=== PATIENT | female | born 2005 | race Caucasian/White ===

== ENCOUNTER 2024-09-12 16:36 | Emergency (ER) | payer OTHER, SELFPAY ==
[2024-09-12 16:44] VITALS: BP 121/71; PULSE 93; RESP 18; TEMP 36.9; O2SAT 100
--- NOTE | 2024-09-12 16:52 | ED_ITS ---
HPI - Ear Problem General Chief complaint: Ear Stated complaint: Right Ear Pain Time Seen by Provider: 09/12/24 16:52 Source: patient Mode of arrival: ambulatory Limitations: no limitations History of Present Illness HPI Narrative: 18 y/o female presented for c/o right ear pain, sore throat, and headache. Onset 3 days. Denies any other symptoms. Has not taken anything for symptoms. Sister with strep. MD Complaint: ear pain Related Data Home Medications ?Medication ?Instructions ?Recorded ?Confirmed ?Last Taken ?Type No Home Medications 09/12/24 09/12/24 Unknown History Allergies Allergy/AdvReac Type Severity Reaction Status Date / Time MYCINS Allergy Severe ANAPHYLAXIS Uncoded 09/12/24 16:38 Review of Systems Review of Systems: CONSTITUTIONAL: Denies malaise, chills, or fever. EYES: Denies visual changes, redness, or discharge. ENT: Denies rhinorrhea, congestion, sinus pain, Reports ear pain, sore throat CARDIOVASCULAR: Denies chest pain, palpitations, or edema. RESPIRATORY: Denies cough or dyspnea. GASTROINTESTINAL: Denies abdominal pain, nausea, vomiting, diarrhea SKIN: Denies rash or itching. MUSCULOSKELETAL: Denies myalgia. All systems reviewed & are unremarkable except as noted in HPI and below PMFSH Comments At time of signature, agree with nursing past medical, surgical, social and family history. There is no relevant family history pertinent to the presenting complaint Exam Narrative: GENERAL: Well-appearing EYES: PERRLA, conjunctivae clear ENT: Nares clear. Mucous membranes moist. TMs pearly edouard with dull light reflex bilaterally; no tragal tenderness. Oropharynx not erythematous without lesions. Tonsils absent; no drooling, no hoarseness, no trismus, uvula midline. NECK: Supple. No lymphadenopathy CHEST: Clear to auscultation, breath sounds equal. HEART: Regular rate and rhythm. No murmur heard. SKIN: Warm, dry, no rash. NEURO: Alert and oriented x3. PSYCH: Normal mood and affect Course Course Emergency Course: Patient is aware of diagnosis, understands and agrees to treatment plan. Anticipatory guidance given. Patient agrees to follow-up as directed and is aware of reasons to seek care at the emergency department. Portions of this record may have been created with voice recognition software Level of Care: Express Care Visit Vital Signs Vital signs: Vital Signs Temperature 98.5 F 09/12/24 16:44 Pulse Rate 93 09/12/24 16:44 Respiratory Rate 18 09/12/24 16:44 Blood Pressure 121/71 09/12/24 16:44 Pulse Oximetry 100 09/12/24 16:44 Oxygen Delivery Room Air 09/12/24 16:44 Temperature 98.5 F 09/12/24 16:44 Pulse Rate 93 09/12/24 16:44 Respiratory Rate 18 09/12/24 16:44 Blood Pressure 121/71 09/12/24 16:44 Pulse Oximetry 100 09/12/24 16:44 Oxygen Delivery Room Air 09/12/24 16:44 Reviewed Medical Decision Making MDM Narrative Medical decision making narrative: strep negative, Advised supportive measures and signs/symptoms to go to the ER. Patient is appropriate for outpatient treatment and follow-up. Differential Diagnosis Differential Diagnosis: Coronavirus, strep pharyngitis, allergic rhinitis, upper respiratory tract infection, sinusitis, rhinosinusitis, nasopharyngitis, viral pharyngitis, otitis media, otitis externa, eustachian tube dysfunction, foreign body, cerumen impaction. Vital Signs Vital Signs: Vital Signs Temperature 98.5 F 09/12/24 16:44 Pulse Rate 93 09/12/24 16:44 Respiratory Rate 18 09/12/24 16:44 Blood Pressure 121/71 09/12/24 16:44 Pulse Oximetry 100 09/12/24 16:44 Oxygen Delivery Room Air 09/12/24 16:44 Temperature 98.5 F 09/12/24 16:44 Pulse Rate 93 09/12/24 16:44 Respiratory Rate 18 09/12/24 16:44 Blood Pressure 121/71 09/12/24 16:44 Pulse Oximetry 100 09/12/24 16:44 Oxygen Delivery Room Air 09/12/24 16:44 Discharge Plan Discharge Clinical Impression: Otalgia of right ear Patient Disposition: Home, Self-Care Condition: Stable Instructions: Antibiotic Form, Earache (ED) Additional Instructions: Rapid strep swab was negative today You will be notified in a few days if the culture comes back positive for strep, and appropriate antibiotics will be called in at that time. if symptoms are due to a viral illness, it is not treated with antibiotics. Viral symptoms can be present for up to 10-14 days. Recommend Flonase spray and Zyrtec for sinus congestion Tylenol every 8 hours as needed for pain/fever Soft foods, cool liquids, warm tea. Gargle with warm saltwater twice a day. Chloraseptic spray and throat lozenges. Rest and stay hydrated. --Follow up with your PCP --Go to the ER immediately if you cannot swallow your saliva, trouble breathing/wheezing, throat swelling, pain is persistent and severe Patient Language: Citizen Of [place] Prescriptions: No Action No Home Medications Follow-up/Referrals: PHYSICIAN NOT ON STAFF,NONSTAFF [Primary Care Provider] - Time of Disposition: 17:09
[2024-09-12 17:11] LABS: EDSTREPNEGPOS1 Negative (Negative)
== END 2024-09-12 17:12 | disposition home or self-care (01) ==
PROVIDERS: Emergency Provider Nurse Practitioner Family
DX: H92.01 Otalgia, right ear (principal)
CPT/HCPCS: 87081; 87880; 99213; G0463

== ENCOUNTER 2025-02-19 01:17 | Emergency (ER) | payer OTHER, SELFPAY ==
--- OUTSIDE RECORDS SUMMARY | 2025-02-19 01:19 | XMS_ITS | Referral Summary ---
Author Organization [facility] Address [address] [place] [address] Care Team Providers Care Legger Press Operator Name Role Phone Inez Bui NP Primary Care Provider [phone] Encounters Date Type Department Care Team Description 01/07/2025 Orders Only [facility] Primary Care at [address] [phone] Inez Bui NP Mood disorder (Primary Dx) 01/07/2025 11:00 AM CDT Office Visit [facility] Primary Care at [address] [phone] Inez Bui NP Mood disorder (Primary Dx); Chronic pain of both knees 11/26/2024 Results Follow-Up [facility] Primary Care at [address] [phone] Inze Bui NP Trichomonas vaginalis PCR Urine, HIV 1/2 Antibody plus p24 Antigen Blood, Hepatitis panel, acute Blood, Additional followed-up results: 7 11/23/2024 11:05 AM SENIOR PROJECT ENGINEER Lab [address] Annual physical exam; Screening for thyroid disorder; Screen for sexually transmitted diseases; Encounter for hepatitis C screening test for low risk patient 11/23/2024 Orders Only [facility] Primary Care at [address] [phone] Inez Bui NP Mood disorder; Chronic pain of both knees 11/23/2024 10:30 AM SENIOR PROJECT ENGINEER Office Visit [facility] Primary Care at [address] [place] [address] Ienz Bui NP Annual physical exam (Primary Dx); Mood disorder; Chronic pain of both knees; Screening for thyroid disorder; Screen for sexually transmitted diseases; Encounter for hepatitis C screening test for low risk patient; Influenza vaccination declined from Last 3 Months Allergies No known active allergies Medications naproxen (NAPROSYN) 250 mg tablet TAKE 1 TABLET(250 MG) BY MOUTH DAILY NEEDED FOR PAIN OR MENSTRUAL CRAMPING 20 tablet 2 4 Active busPIRone (BUSPAR) 5 mg tabletIndicatio ns:Generalized Anxiety Disorder Take 1 tablet (5 mg total) by mouth 2 (two) times a day as needed (anxiety) 90 tablet 5 Active escitalopram (LEXAPRO) 10 mg tabletIndicatio ns:Mood disorder Take 1.5 tablets (15 mg total) by mouth daily 90 tablet 5 Active Active Problems Problem Noted Date Diagnosed Date Mood disorder 11/23/2024 Assessment & Plan (01/07/2025 11:21 AM CDT): -chronic, improving, but not at goal -Increase to escitalopram 10 mg 1.5 tablets daily -Continue on buspirone 5 mg twice daily as needed for anxiety- advised patient to avoid taking the buspirone with the Lexapro to see if this helps to improve her excessive sleep -New referral sent to Psychiatry -Follow up in 6 weeks or sooner as needed Patient reiterated no suicidal thoughts at this time; take medication as directed; contact 911 and go to the ER if becomes suicidal; discussed side effects of medication with patient; encouraged healthy diet and exericise; encouraged patient to see a counselor Assessment & Plan (11/23/2024 11:24 AM SENIOR PROJECT ENGINEER): -chronic, not at/near goal -Discussed/ordered labs -Start on escitalopram 10 mg daily and buspirone 5 mg twice daily as needed for anxiety -Referral sent to Psychiatry -Follow up in 6 weeks or sooner as needed Patient reiterated no suicidal thoughts at this time; take medication as directed; contact 911 and go to the ER if becomes suicidal; discussed side effects of medication with patient; encouraged healthy diet and exericise; encouraged patient to see a counselor Chronic pain of both knees 11/23/2024 Assessment & Plan (01/07/2025 11:22 AM CDT): -chronic, not at/near goal -Patient reports completing imaging and physical therapy, but she does not remember where she had done this. Advised patient to try to find where the imaging with completed and reach out to see if they can send the imaging results to us -Information provided to patient for ortho referral Assessment & Plan (11/23/2024 11:25 AM SENIOR PROJECT ENGINEER): -chronic, not at/near goal -Patient reports completing imaging and physical therapy, but she does not remember where she had done this. Advised patient to try to find where the imaging with completed and reach out to see if they can send the imaging results to us -Referral sent to ortho for further evaluation and management Vegetarian diet 05/06/2023 Assessment & Plan (05/06/2023 8:55 AM CDT): -Patient follows a vegetarian diet. -advised patient to ensure she is eating enough protein daily -lab work ordered today Immunizations Immunization Administration Dates Next Due DTaP 04/25/2010,03/14/2006 DTaP / Hep B / IPV 04/27/2005,02/18/2005, 005 HPV9 05/06/2023,12/05/2020 Hep A, Ped Unspecified 09/20/2006,03/14/2006 Hep B, Adolescent or Pediatric 2004 HiB 02/18/2005,2004 IPV 04/25/2010,02/11/2006 Influenza, Quadrivalent, Spl it, Preservative Free, Intramuscular 10/12/2016 Influenza, Split 07/07/2009,07/31/2008 Influenza, Unspecified 11/23/2024(Deferr ed: Patient Refused),07/03/2024(Deferred: Patient Refused),07/03/2023(Deferred: Patient Refused) MMR 04/25/2010,10/25/2005 Meningococcal B, OMV (Bexsero) 05/06/2023 Meningococcal Conjugate (Menveo) 12/05/2020 Meningococcal MCV4P (Menactra) 10/12/2016 Pneumococcal Conjugate 7-Valent 04/27/2005,02/18,2004 Tdap 05/12/2016 Varicella 05/12/2016,10/25/2005 Social History Tobacco Use Types Packs/Day Years Used Date Smoking Tobacco: Never Smokeless Tobacco: Never AUDIT-C Answer Date Recorded Q1: How often do you have a drink containing alcohol? Never 01/07/2025 Q2: How many drinks containi ng alcohol do you have on a typical day when you are drinking? Patient does not drink Q3: How often do you have si x or more drinks on one occasion? Never 01/07/2025 PHQ-2 Answer Date Recorded PHQ-2 Total Score (If total score is 3 or more points, staff should administer the PHQ-9) 1 01/07/2025 PHQ-9 Answer Date Recorded PHQ-9 Total Score 12 11/23/2024 Comments Unknown Sex and Gender Information Value Date Recorded Sex Assigned at Not on file Legal Sex Female 8:40 AM CDT Gender Identity Female 10/01/2024 8:36 PM SENIOR PROJECT ENGINEER Sexual Orientation Don't know 10/01/2024 8: 36 PM SENIOR PROJECT ENGINEER Last Filed Vital Signs Vital Sign Reading Time Taken Comments Blood Pressure 101/65 01/07/2025 10:51 AM CDT Pulse 80 01/07/2025 10:51 AM CDT Temperature 36.2 C (97.1 F) 01/07/2025 10:51 AM CDT Respiratory Rate 14 01/07/2025 10:51 AM CDT Oxygen Saturation 99% 01/07/2025 10:51 AM CDT Inhaled Oxygen Concentration - - Weight 49.9 kg (110 lb) 01/07/2025 10:51 AM CDT Height 151 cm (4' 11.45 ) 01/07/2025 10:51 AM CD T Body Mass Index 21.88 01/07/2025 10:51 AM CDT Plan of Treatment Not on file Procedures Procedure Name Priority Date/Time Associated Diagnosis Comments EGFR Routine 11/23/2024 11:02 AM SENIOR PROJECT ENGINEER Annual physical exam Screening for thyroid disorder Screen for sexually transmitted diseases Encounter for hepatitis C screening test for low risk patient DIFFERENTIAL AUTO Routine 11/23/2024 11: 02 AM SENIOR PROJECT ENGINEER Annual physical exam Screening for thyroid disorder Screen for sexually transmitted diseases Encounter for hepatitis C screening test for low risk patient CBC WITH AUTO DIFFERENTIAL Routine 11/23/2024 11:02 AM SENIOR PROJECT ENGINEER Annual physical exam Screening for thyroid disorder Screen for sexually transmitted diseases Encounter for hepatitis C screening test for low risk patient COMPREHENSIVE METABOLIC PANEL Routine 11/23/2024 11:02 AM SENIOR PROJECT ENGINEER Annual physical exam Screening for thyroid disorder Screen for sexually transmitted diseases Encounter for hepatitis C screening test for low risk patient THYROID FUNCTION CASCADE Routine 11/23/2024 11:02 AM SENIOR PROJECT ENGINEER Annual physical exam Screening for thyroid disorder Screen for sexually transmitted diseases Encounter for hepatitis C screening test for low risk patient N. GONORRHOEAE/C. TRACHOMATIS AMPLIFICATION Routine 11/23/2024 11:02 AM SENIOR PROJECT ENGINEER Annual physical exam Screening for thyroid disorder Screen for sexually transmitted diseases Encounter for hepatitis C screening test for low risk patient HEPATITIS PANEL, ACUTE Routine 11:02 AM SENIOR PROJECT ENGINEER Annual physical exam Screening for thyroid disorder Screen for sexually transmitted diseases Encounter for hepatitis C screening test for low risk patient HIV 1/2 ANTIBODY PLUS P24 ANTIGEN Routine 11/23/2024 11:02 AM SENIOR PROJECT ENGINEER Annual physical exam Screening for thyroid disorder Screen for sexually transmitted diseases Encounter for hepatitis C screening test for low risk patient RPR Routine 11/23/2024 11:02 AM SENIOR PROJECT ENGINEER Annual physical exam Screening for thyroid disorder Screen for sexually transmitted diseases Encounter for hepatitis C screening test for low risk patient TRICHOMONAS VAGINALIS PCR Routine 11/23/2024 11:02 AM SENIOR PROJECT ENGINEER Annual physical exam Screening for thyroid disorder Screen for sexually transmitted diseases Encounter for hepatitis C screening test for low risk patient from Last 3 Months Results * N. gonorrhoeae/C. trachomatis Amplification Urine (11/23/2024 11:02 AM SENIOR PROJECT ENGINEER) C. trachomatis Not Detected [facility] Comment:Testing performed by : [facility], [address] [place] [address]., [id number] N. gonorrhoeae Not Detected [facility]ICA DEN[facility] ([place]) Comment: Interpretive Data This assay detects Chlamydia trachomatis and Neisseria gonorrhoeae by nucleic acid amplification testing (NAAT). This assay has been cleared by the [place] Food and Drug administration. The performance characteristics of this test have been verified by the [facility] Molecular Infectious Disease laboratory. The performance characteristics of this test have not been evaluated in individuals less than 14 years of age. Current Interpretive Data was last revised on 2023. Testing performed by: [facility], [address] [place] [address]., [id number] Urine (None) 11/23/2024 11:0 2 AM SENIOR PROJECT ENGINEER 11/23/2024 5:25 PM SENIOR PROJECT ENGINEER Inez Rodriguezman ANNABELLA LAB MICROBIOLOGY - GENERAL O RDERABLES Final Result KIMO ISH ([place]) 1 [facility] Department [place] [address] [facility] * Trichomonas vaginalis PCR Urine (11/23/2024 11:02 AM SENIOR PROJECT ENGINEER) Pathologist [facility] Trichomonas DNA Not Detected [facility] Comment: Interpretive Data This assay detects Trichomonas vaginalis by nucleic acid amplification testing (NAAT). This assay has been cleared by the [place] Food and Drug administration. The performance characteristics of this test have been verified by the [facility] Molecular Infectious Disease laboratory. The performance of this test has not been evaluated in individuals less than 18 years of age. Current Interpretive Data was last revised on 2023. Testing performed by: [facility], [address] [place] [address]., [id number] Urine 11/23/2024 11:0 2 AM SENIOR PROJECT ENGINEER 11/23/2024 5:25 PM SENIOR PROJECT ENGINEER Inez Bui NP LAB MICROBIOLOGY - GENERAL O RDERABLES Final Result Performing Organization Address City/[facility]/ZIP Co de Phone Number KIMO DENG (GYPSY) 1 [facility] Department [place] [address] BJ * eGFR (11/23/2024 11:02 AM SENIOR PROJECT ENGINEER) eGFR >90 >=60 mL/min/1. 73 m2 Comment: Interpretive Data Reference Interval Normal >/= 90 mL/min/1.73m2 Mildly decreased* 60 - 89 mL/min/1.73m2 Mildly to moderately decreased 45 - 59 mL/min/1.73m2 Moderately to severely decreased 30 - 44 mL/min/1.73m2 Severely decreased 15 - 29 mL/min/1.73m2 Kidney Failure < 15 mL/min/1.73m2 *Relative to young adult level Estimated glomerular filtration rate is determined by the 2020 CKD-EPI equation recommended by the National Kidney Foundation (A Unifying Approach to GFR Estimation: Recommendations of the NKF-ASK Task Force on Reassessing the Inclusion of Race in Diagnosing Kidney Disease, JASN 2020). The CKD-EPI equation should not be used for patients with unstable renal function and has not been validated in children and those over 70. Current interpretive data was last reviewed 2021. Blood 11/23/2024 11:0 2 AM SENIOR PROJECT ENGINEER 11/23/2024 1:38 PM SENIOR PROJECT ENGINEER Inez Bui NP LAB BLOOD ORDERABLES Final R esult Performing Organization Address City/[facility]/ZIP Co de Phone Number KIMO DENG (GYPSY) 1 [facility] Department [place] [address] * Differential, auto (11/23/2024 11:02 AM SENIOR PROJECT ENGINEER) Neutrophil abs 2.2 1.5 - 6.5 K/cumm Imm gran abs 0.0 0.0 - 0.1 K/cumm [facility] ([place]) Lymphocyte abs 1.6 0.8 - 3.3 K/cumm [facility] ([place]) Monocyte abs 0.3 0.2 - 0.8 K/cumm [facility] ([place]) Eosinophil abs 0.1 0.0 - 0.5 K/cumm [facility] ([place]) Basophil abs 0.1 0.0 - 0.1 K/cumm [facility] ([place]) Neutrophil pct 50.1 % [facility] ([place]) Comment: Interpretive Data Percent cell count reference ranges are not reported, since discordance with absolute values may lead to misinterpretation of CBC data. Current Interpretive Data was last revised on 2018. Imm gran pct 0.2 % [facility] ([place]) Comment: Interpretive Data Percent cell count reference ranges are not reported, since discordance with absolute values may lead to misinterpretation of CBC data. Current Interpretive Data was last revised on 2018. Lymphocyte pct 37.8 % [facility] ([place]) Comment: Interpretive Data Percent cell count reference ranges are not reported, since discordance with absolute values may lead to misinterpretation of CBC data. Current Interpretive Data was last revised on 2018. Monocyte pct 7.9 % [facility] ([place]) Comment: Interpretive Data Percent cell count reference ranges are not reported, since discordance with absolute values may lead to misinterpretation of CBC data. Current Interpretive Data was last revised on 2018. Eosinophil pct 2.8 % [facility] ([place]) Comment: Interpretive Data Percent cell count reference ranges are not reported, since discordance with absolute values may lead to misinterpretation of CBC data. Current Interpretive Data was last revised on 2018. Basophil pct 1.2 % [facility] ([place]) Comment: Interpretive Data Percent cell count reference ranges are not reported, since discordance with absolute values may lead to misinterpretation of CBC data. Current Interpretive Data was last revised on 2018. Blood 11/23/2024 11:0 2 AM SENIOR PROJECT ENGINEER 11/23/2024 1:38 PM SENIOR PROJECT ENGINEER [facility] LAB BLOOD ORDERABLES Final R esult Performing Organization Address [facility] Co de Phone Number KIMO DENG (DARCIE) 1 [facility] [place] [address] * Thyroid Function [place] (11/23/2024 11:02 AM SENIOR PROJECT ENGINEER) [facility] TSH 1.47 0.30 - 4.20 mcIUnit/mL Blood 11/23/2024 11:0 2 AM SENIOR PROJECT ENGINEER 11/23/2024 1:38 PM SENIOR PROJECT ENGINEER [facility] LAB BLOOD ORDERABLES Final R esult Performing Organization Address [facility] de Phone Number KIMO DENG (GYPSY) 1 [place] [address] * HIV 1/2 Antibody plus p24 Antigen Blood (11/23/2024 11:02 AM SENIOR PROJECT ENGINEER) [facility] HIV 1/2 ab + p24 ag Nonreactive Nonreactive Comment: Nonreactive for HIV-1 antigen and HIV-1/HIV-2 antibodies. No laboratory evidence of HIV infection. If acute HIV infection is suspected, consider testing for HIV-1 RNA. Testing performed by: [facility], [address] [place] [address]., [id number] Blood 11/23/2024 11:0 2 AM SENIOR PROJECT ENGINEER 11/23/2024 4:37 PM SENIOR PROJECT ENGINEER [facility] LAB MICROBIOLOGY - GENERAL O RDERABLES Final Result Performing Organization Address [facility] Co de Phone Number KIMO DENG (DARCIE) 1 [facility] [place] [address] * CBC with auto differential (11/23/2024 11:02 AM SENIOR PROJECT ENGINEER) [facility] WBC 4.3 3.8 - 9.9 K/cumm Hgb 15.0 11.9 - 15.5 g/dL [facility] ([place]) Hct 44.3 35.6 - 45.5 % [facility] ([place]) Plt 294 150 - 400 K/cumm [facility] ([place]) MPV 9.8 9.1 - 12.3 fL [facility] ([place]) RBC 4.84 3.90 - 5.20 M/cumm [facility] ([place]) MCV 91.5 81.3 - 96.4 fL [facility] ([place]) MCH 31.0 27.1 - 33.3 pg [facility] ([place]) MCHC 33.9 32.3 - 35.7 g/dL [facility] ([place]) RDW CV 11.6 11.1 - 14.9 % [facility] ([place]) RDW SD 38.9 35.7 - 48.1 fL [facility] ([place]) NRBC abs 0.00 0.00 - 0.01 K/cumm [facility] ([place]) Blood 11/23/2024 11:0 2 AM SENIOR PROJECT ENGINEER 11/23/2024 1:38 PM SENIOR PROJECT ENGINEER [facility] LAB BLOOD ORDERABLES Final R esult KIMO DENG ([place]AR[place]E) 1 [facility] Department [place] [address] * Hepatitis panel, acute Blood (11/23/2024 11:02 AM SENIOR PROJECT ENGINEER) Hep A IgM Nonreactive Nonreactive Comment: Interpretive Data: If Hep A IgM Ab is reported as Equivocal, a new sample should be drawn in two weeks for testing. Current interpretive data was last revised on 19. Testing performed by: [facility], [address] [place] [address]., [id number] Hep B core IgM Nonreactive Nonreactive C [facility] ([place]) Comment: Interpretive Data If HepB Core IgM Ab is reported as Equivocal, a new sample should be drawn in two weeks for testing. Current interpretive data was last revised on 19. Testing performed by: [address] [id number] Hep C Ab Nonreactive Nonreactive [facility] ([place]) Comment: Interpretive Data Nonreactive: Antibodies to HCV not detected. Does NOT exclude the possibility of recent exposure to HCV. Equivocal: Equivocal for HCV antibodies. Supplemental molecular testing will be automatically performed to determine infection status in accordance with current CDC screening recommendations. Reactive: Positive for HCV antibodies. This may represent current or past HCV infection. Supplemental molecular testing will be automatically performed to determine current infection status in accordance with current CDC screening recommendations. Interpretive data was last revised on 2019. Testing performed by: [facility], [address] [place] [address]., [id number] HepBsAg Nonreactive Nonreactive [facility] ([place]) Comment:Testing performed by : [facility], [address] [place] [address]., [id number] Blood 11/23/2024 11:0 2 AM SENIOR PROJECT ENGINEER 11/23/2024 4:37 PM SENIOR PROJECT ENGINEER Inez Bui LAB MICROBIOLOGY - GENERAL O RDERABLES Final Result Performing Organization Address City/[facility]/ZIP Co de Phone Number [facility] ([place]) 1 [facility] [place] [address] * RPR Blood (11/23/2024 11:02 AM SENIOR PROJECT ENGINEER) RPR Nonreactive Nonreactive Comment:Testing performed by : [facility], [address] [place] [address]., [id number] Blood 11/23/2024 11:0 2 AM SENIOR PROJECT ENGINEER 11/23/2024 4:37 PM SENIOR PROJECT ENGINEER [facility] LAB MICROBIOLOGY - GENERAL O RDERABLES Final Result [facility] ([place]) 1 [facility] [place] [address] * Comprehensive metabolic panel (11/23/2024 11:02 AM SENIOR PROJECT ENGINEER) Sodium 140 135 - 145 mmol/L Potassium, pl 4.1 3.3 - 4.9 mmol/L [facility] ([place]) Chloride 101 97 - 110 mmol/L [facility] ([place]) CO2 25 22 - 32 mmol/L [facility] ([place]) Anion gap 14 2 - 15 mmol/L [facility] ([place]) BUN 9 6 - 25 mg/dL [facility] ([place]) Creatinine 0.67 0.60 - 1.10 mg/dL [facility] ([place]) Glucose 90 70 - 199 mg/dL [facility] ([place]) Comment: Interpretive Data Fasting glucose >/= 126 mg/dl is diagnostic for diabetes. Fasting is defined as no caloric intake for at least 8 hours. Fasting glucose between 100 mg/dl to 125 mg/dl is diagnostic of prediabetes. In a patient with classic symptoms of hyperglycemia or hyperglycemic crisis, a random glucose >/= 200 mg/dl is diagnostic for diabetes. In the absence of unequivocal hyperglycemia, results should be confirmed by repeat testing. The classification and Diagnosis of Diabetes Diabetes Care 202; 46: S19-S40. Current interpretive data was last revised 2022. Calcium 9.6 8.5 - 10.3 mg/dL [facility] ([place]) Bilirubin, total 0.7 0.1 - 1.2 mg/dL [facility] ([place]) Protein, pl 8.0 6.5 - 8.5 g/dL [facility] ([place]) Albumin 4.9 3.5 - 5.0 g/dL [facility] ([place]) Alk phos 65 40 - 130 Units/L [facility] ([place]) ALT 12 7 - 45 Units/L [facility] ([place]) AST 22 10 - 45 Units/L [facility] ([place]) Blood 11/23/2024 11:0 2 AM SENIOR PROJECT ENGINEER 11/23/2024 1:38 PM SENIOR PROJECT ENGINEER Inez Rodriguezman ANNABELLA LAB BLOOD ORDERABLES Final R esult [facility] ([place]) 1 [facility] [place] [address] from Last 3 Months Insurance [employer] [facility] PPO [facility] PPO [facility] PPO Care Teams Legger Press Operator Relationship Specialty Start Date End Date Inez Bui NP 2 [facility] [address] LIN [address] [place] [id number] PCP - General Family Medicine 05/06/23
--- OUTSIDE RECORDS SUMMARY | 2025-02-19 01:19 | XMS_ITS | Clinical Summary ---
Author Organization [facility] Address [address] [place] [address] Care Team Providers Care Milk Bottler Name Role Phone Inez Bui NP Primary Care Provider [phone] Allergies No known active allergies Medications naproxen [...] counselor Assessment & Plan (11/23/2024 11:24 AM ROUTER OPERATOR RADIAL): -chronic, not at/near goal -Discussed/ordered labs -Start [...] referral Assessment & Plan (11/23/2024 11:25 AM ROUTER OPERATOR RADIAL): -chronic, not at/near goal -Patient reports completing [...] enough protein daily -lab work ordered today Encounters Date Type Department Care Team Description 01/07/2025 11:00 AM CDT Office Visit [facility] Primary [facility] at [address] [place] [address] Inez Bui NP Mood disorder (Primary Dx); Chronic pain of both knees 01/07/2025 Orders Only [facility] Primary Care at [address] [phone] Inez Bui NP Mood disorder (Primary Dx) 11/26/2024 Results Follow-Up [facility] at [address] [phone] Inez Bui NP Trichomonas vaginalis PCR Urine, HIV 1/2 Antibody plus p24 Antigen Blood, Hepatitis panel, acute Blood, Additional followed-up results: 7 11/23/2024 11:05 AM ROUTER OPERATOR RADIAL Lab [address] Annual physical exam; Screening for thyroid disorder; Screen for sexually transmitted diseases; Encounter for hepatitis C screening test for low risk patient 11/23/2024 10:30 AM ROUTER OPERATOR RADIAL Office Visit [facility] at [address] [phone] Inez Bui NP Annual physical exam (Primary Dx); Mood disorder; Chronic pain of both knees; Screening for thyroid disorder; Screen for sexually transmitted diseases; Encounter for hepatitis C screening test for low risk patient; Influenza vaccination declined 11/23/2024 Orders Only [facility] at [address] [phone] Inez Bui NP Mood disorder; Chronic pain of both knees from Last 3 Months Immunizations Immunization Administration Dates Next Due DTaP [...] Conjugate 7-Valent 04/27/2005,02/18,2004 Tdap 05/12/2016 Varicella 05/12/2016,10/25/2005 Surgical History Surgery Date Site/Laterality Comments TONSILLECTOMY 10/03/2009 Family History Medical History Relation Name Comments Heart disease Maternal Grandfather Anxiety disorder Mother Depression Mother Relation Name Status Comments Maternal Grandfather Mother Social History Tobacco Use Types Packs/Day Years [...] CDT Gender Identity Female 10/01/2024 8:36 PM ROUTER OPERATOR RADIAL Sexual Orientation Don't know 10/01/2024 8: 36 PM ROUTER OPERATOR RADIAL Obstetrics History Last Filed Vital Signs Vital Sign Reading [...] 01/07/2025 10:51 AM CDT Plan of Treatment Health Maintenance Due Date Last Done Comments HPV Vaccines (3 - 3-dose series) 07/29/2023 05/06/2023, 12/05/2020 Meningococcal B Vaccine (2 of 2 - Bexsero SCDM 2-dose series) 11/06/2023 05/06/2023 Covid-19 Vaccine ( - season) 2024 07/25/2022, 03/16/2021, 02/27/2021 Influenza Vaccine (Season Ended) 2025 10/12/2016, 07/07/2009, 07/31/2008 Regular Well Visit/Exam 18-64 11/23/2025 11/23/2024, 05/06/2023 Depression Screening 01/07/2026 01/07/2025, 11/23/2024, 11/23/2024, Additional history exists DTaP/Tdap/Td Vaccine (7 - Td or Tdap) 05/12/2026 05/12/2016, 04/25/2010, 03/14/2006, Additional history exists Hepatitis B Screening Completed 04/27/2005 , 02/18/2005, 2004, Additional history exists Pneumococcal vaccine <65 Aged Out 005, 02/18/2005, 2004 No longer eligible based on patient's age to complete this topic Varicella Vaccines Completed 05/12/2016, 10/25/2005 Meningococcal Vaccine Completed 12/05/2020, 017 Hepatitis C Screening Completed 11/23/2024 Procedures Procedure Name Priority Date/Time Associated Diagnosis Comments EGFR Routine 11/23/2024 11:02 AM ROUTER OPERATOR RADIAL Annual physical exam Screening for thyroid disorder Screen for sexually transmitted diseases Encounter for hepatitis C screening test for low risk patient DIFFERENTIAL AUTO Routine 11/23/2024 11: 02 AM ROUTER OPERATOR RADIAL Annual physical exam Screening for thyroid disorder Screen for sexually transmitted diseases Encounter for hepatitis C screening test for low risk patient CBC WITH AUTO DIFFERENTIAL Routine 11/23/2024 11:02 AM ROUTER OPERATOR RADIAL Annual physical exam Screening for thyroid disorder Screen for sexually transmitted diseases Encounter for hepatitis C screening test for low risk patient COMPREHENSIVE METABOLIC PANEL Routine 11/23/2024 11:02 AM ROUTER OPERATOR RADIAL Annual physical exam Screening for thyroid disorder Screen for sexually transmitted diseases Encounter for hepatitis C screening test for low risk patient THYROID FUNCTION CASCADE Routine 11/23/2024 11:02 AM ROUTER OPERATOR RADIAL Annual physical exam Screening for thyroid disorder Screen for sexually transmitted diseases Encounter for hepatitis C screening test for low risk patient N. GONORRHOEAE/C. TRACHOMATIS AMPLIFICATION Routine 11/23/2024 11:02 AM ROUTER OPERATOR RADIAL Annual physical exam Screening for thyroid disorder Screen for sexually transmitted diseases Encounter for hepatitis C screening test for low risk patient HEPATITIS PANEL, ACUTE Routine 11:02 AM ROUTER OPERATOR RADIAL Annual physical exam Screening for thyroid disorder Screen for sexually transmitted diseases Encounter for hepatitis C screening test for low risk patient HIV 1/2 ANTIBODY PLUS P24 ANTIGEN Routine 11/23/2024 11:02 AM ROUTER OPERATOR RADIAL Annual physical exam Screening for thyroid disorder Screen for sexually transmitted diseases Encounter for hepatitis C screening test for low risk patient RPR Routine 11/23/2024 11:02 AM ROUTER OPERATOR RADIAL Annual physical exam Screening for thyroid disorder Screen for sexually transmitted diseases Encounter for hepatitis C screening test for low risk patient TRICHOMONAS VAGINALIS PCR Routine 11/23/2024 11:02 AM ROUTER OPERATOR RADIAL Annual physical exam Screening for thyroid disorder Screen for sexually transmitted diseases Encounter for hepatitis C screening test for low risk patient from Last 3 Months Results * N. gonorrhoeae/C. trachomatis Amplification Urine (11/23/2024 11:02 AM ROUTER OPERATOR RADIAL) C. trachomatis Not Detected [facility] Comment:Testing performed by : [facility], [address] [facility], [place]., [address] N. gonorrhoeae Not Detected [facility] ([place]) Comment: Interpretive Data This assay detects Chlamydia trachomatis and Neisseria gonorrhoeae by nucleic acid amplification testing (NAAT). This assay has been cleared by the [place] Food and Drug administration. The performance characteristics of this test have been verified by the [facility] Molecular Infectious Disease laboratory. The performance characteristics of this test have not been evaluated in individuals less than 14 years of age. Current Interpretive Data was last revised on 2023. Testing performed by: [facility], [address] [place]., [address] Urine (None) 11/23/2024 11:0 2 AM ROUTER OPERATOR RADIAL 11/23/2024 5:25 PM ROUTER OPERATOR RADIAL Inez Bui LAB MICROBIOLOGY - GENERAL O RDERABLES Final Result Performing Organization Address [facility] Co de Phone Number [facility] ([place]) [address] [place] [address] [facility] [place] [address] [facility] * Trichomonas vaginalis PCR Urine (11/23/2024 11:02 AM ROUTER OPERATOR RADIAL) Pathologist [facility] Trichomonas DNA Not Detected [facility] Comment: Interpretive Data This assay detects Trichomonas vaginalis by nucleic acid amplification testing (NAAT). This assay has been cleared by the [place] Food and Drug administration. The performance characteristics of this test have been verified by the [facility] Molecular Infectious Disease laboratory. The performance of this test has not been evaluated in individuals less than 18 years of age. Current Interpretive Data was last revised on 2023. Testing performed by: [facility], [address] [place]., [address] Urine 11/23/2024 11:0 2 AM ROUTER OPERATOR RADIAL 11/23/2024 5:25 PM ROUTER OPERATOR RADIAL [facility] - GENERAL O RDERABLES Final Result Performing Organization Address [facility] Co de Phone Number [facility] ([place]) [address] [facility] [place] [address] [facility] * eGFR (11/23/2024 11:02 AM ROUTER OPERATOR RADIAL) eGFR >90 >=60 mL/min/1. 73 m2 Comment: [...] reviewed 2021. Blood 11/23/2024 11:0 2 AM ROUTER OPERATOR RADIAL 11/23/2024 1:38 PM ROUTER OPERATOR RADIAL Inez Bui NP LAB BLOOD ORDERABLES Final R esult [facility] ([place]) 1 [facility] Department [place] [address] * Differential, auto (11/23/2024 11:02 AM ROUTER OPERATOR RADIAL) Neutrophil abs 2.2 1.5 - 6.5 K/cumm Imm gran abs 0.0 0.0 - 0.1 K/cumm [facility] ([place]) Lymphocyte abs 1.6 0.8 - 3.3 K/cumm [facility] ([place]) Monocyte abs 0.3 0.2 - 0.8 K/cumm [facility] ([place]) Eosinophil abs 0.1 0.0 - 0.5 K/cumm [facility] ([place]) Basophil abs 0.1 0.0 - 0.1 K/cumm [facility] ([place]) Neutrophil pct 50.1 % [facility] [...] revised on 2018. Monocyte pct 7.9 % [facility] ([place]) Comment: Interpretive Data Percent cell [...] revised on 2018. Basophil pct 1.2 % [facility] ([place]) Comment: Interpretive Data Percent cell count reference ranges are not reported, since discordance with absolute values may lead to misinterpretation of CBC data. Current Interpretive Data was last revised on 2018. Blood 11/23/2024 11:0 2 AM ROUTER OPERATOR RADIAL 11/23/2024 1:38 PM ROUTER OPERATOR RADIAL Inez Bui NP LAB BLOOD ORDERABLES Final R esult [facility] ([place]) 1 [facility] Department of Laboratories [place], [place] [id number] * Thyroid Function Sierra (11/23/2024 11:02 AM ROUTER OPERATOR RADIAL) TSH 1.47 0.30 - 4.20 mcIUnit/mL Blood 11/23/2024 11:0 2 AM ROUTER OPERATOR RADIAL 11/23/2024 1:38 PM ROUTER OPERATOR RADIAL Inez Bui LAB BLOOD ORDERABLES Final R esult [facility]) 1 [facility] [place] [address] * HIV 1/2 Antibody plus p24 Antigen Blood (11/23/2024 11:02 AM ROUTER OPERATOR RADIAL) [facility] HIV 1/2 ab + p24 ag Nonreactive Nonreactive Comment: Nonreactive for HIV-1 antigen and HIV-1/HIV-2 antibodies. No laboratory evidence of HIV infection. If acute HIV infection is suspected, consider testing for HIV-1 RNA. Testing performed by: [facility], [address] [place] [address]., [id number] Blood 11/23/2024 11:0 2 AM ROUTER OPERATOR RADIAL 11/23/2024 4:37 PM ROUTER OPERATOR RADIAL Inez Bui LAB MICROBIOLOGY - GENERAL O RDERABLES Final Result [facility] ([place]) 1 [facility] [employer] [place] [address] * CBC with auto differential (11/23/2024 11:02 AM ROUTER OPERATOR RADIAL) [facility] WBC 4.3 3.8 - 9.9 K/cumm Hgb 15.0 11.9 - 15.5 g/dL [facility] Hct 44.3 35.6 - 45.5 % [facility] Plt 294 150 - 400 K/cumm [facility] ([place]) MPV 9.8 9.1 - 12.3 fL [facility] RBC 4.84 3.90 - 5.20 M/cumm [facility] MCV 91.5 81.3 - 96.4 fL [facility] ([place]) MCH 31.0 27.1 - 33.3 pg [facility] MCHC 33.9 32.3 - 35.7 g/dL [facility] ([place]) RDW CV 11.6 11.1 - 14.9 % [facility] ([place]) RDW SD 38.9 35.7 - 48.1 fL [facility] ([place]) NRBC abs 0.00 0.00 - 0.01 K/cumm [facility] ([place]) Blood 11/23/2024 11:0 2 AM ROUTER OPERATOR RADIAL 11/23/2024 1:38 PM ROUTER OPERATOR RADIAL Inez Bui NP LAB BLOOD ORDERABLES Final R esult [facility] ([place]) 1 [facility] Department [place] [address] * Hepatitis panel, acute Blood (11/23/2024 11:02 AM ROUTER OPERATOR RADIAL) Hep A IgM Nonreactive Nonreactive Comment: Interpretive Data: If Hep A IgM Ab is reported as Equivocal, a new sample should be drawn in two weeks for testing. Current interpretive data was last revised on 19. Testing performed by: [facility], [address] [place] [address]., [id number] Hep B core IgM Nonreactive Nonreactive C [facility] ([place]) Comment: Interpretive Data If HepB Core IgM Ab is reported as Equivocal, a new sample should be drawn in two weeks for testing. Current interpretive data was last revised on 19. Testing performed by: [facility], [address] [place] [address], [place]., [address] Hep C Ab Nonreactive Nonreactive [facility] ([place]) Comment: Interpretive Data Nonreactive: Antibodies to [...] last revised on 2019. Testing performed by: [address] [place] [address] HepBsAg Nonreactive Nonreactive [facility] ([place]) Comment:Testing performed by : [facility], [address] [place] [address]., [id number] Blood 11/23/2024 11:0 2 AM ROUTER OPERATOR RADIAL 11/23/2024 4:37 PM ROUTER OPERATOR RADIAL Inez Bui OFFENSIVE COORDINATOR LAB MICROBIOLOGY - GENERAL O RDERABLES Final Result Performing Organization Address City/[facility]/ZIP Co de Phone Number [facility] ([place]) 1 [facility] [place] [address] * RPR Blood (11/23/2024 11:02 AM ROUTER OPERATOR RADIAL) RPR Nonreactive Nonreactive Comment:Testing performed by : [facility], [address] [place] [address], [id number] Blood 11/23/2024 11:0 2 AM ROUTER OPERATOR RADIAL 11/23/2024 4:37 PM ROUTER OPERATOR RADIAL Inez Bui OFFENSIVE COORDINATOR LAB MICROBIOLOGY - GENERAL O RDERABLES Final Result Performing Organization Address [facility] Co de Phone Number [facility] ([place]) [address] [place] [address] * Comprehensive metabolic panel (11/23/2024 11:02 AM ROUTER OPERATOR RADIAL) Sodium 140 135 - 145 mmol/L Potassium, pl 4.1 3.3 - 4.9 mmol/L [facility] ([place]) Chloride 101 97 - 110 mmol/L [facility]) CO2 25 22 - 32 mmol/L [facility]) Anion gap 14 2 - 15 mmol/L [facility] BUN 9 6 - 25 mg/dL [facility] ([place]) Creatinine 0.67 0.60 - 1.10 mg/dL [facility] Glucose 90 70 - 199 mg/dL [facility] ([place]) Comment: Interpretive Data Fasting glucose [...] [facility] ([place]) Blood 11/23/2024 11:0 2 AM ROUTER OPERATOR RADIAL 11/23/2024 1:38 PM ROUTER OPERATOR RADIAL Inez Bui NP LAB BLOOD ORDERABLES Final R esult [facility] ([place]) 1 [facility] Department of Laboratories [place], [place] [phone] from Last 3 Months Insurance [facility]PO [facility] PPO [facility] PPO Care Teams Milk Bottler Relationship Specialty Start Date End Date Inez Bui NP [address] [place] [address] PCP - General Family Medicine 05/06/23
[2025-02-19 01:21] VITALS: BP 131/87; PULSE 112; RESP 14; TEMP 36.2; O2SAT 99
--- NOTE | 2025-02-19 01:28 | ED_ITS ---
HPI - Psych General Chief Complaint: Psychiatric Symptoms <Lillie Bhatt PA-C - Last Filed: 02/20/25 02:40> Stated Complaint: mental health <Lillie Bhatt PA-C - Last Filed: 02/20/25 02:40> Time Seen by Provider: 02/19/25 01:19 <Lillie Bhatt PA-C - Last Filed: 02/20/25 02:40> History of Present Illness HPI Narrative: 19-year-old female who identifies as male with a past medical history of depression and anxiety presents to the emergency department with partner at bedside for suicidal ideations for several months. Patient reports getting into a fight with parents tonight causing an increase in suicidal thoughts. Denies plan for SI, denies HI. Patient is taking Lexapro 15 mg daily as prescribed, no recent medication changes. Denies prior history of psychiatric hospitalization, access to weapons or firearms. Denies EtOH or drug abuse. <Lillie Bhatt PA-C - Last Filed: 02/20/25 02:40> Related Data Home Medications: Home Medications ?Medication ?Instructions ?Recorded ?Confirmed ?Last Taken ?Type No Home Medications 09/12/24 09/12/24 Unknown History <Lillie Bhatt PA-C - Last Filed: 02/20/25 02:40> Allergies/Adverse Reactions: Allergies Allergy/AdvReac Type Severity Reaction Status Date / Time MYCINS Allergy Severe ANAPHYLAXIS Uncoded 09/12/24 16:38 <Lillie Bhatt PA-C - Last Filed: 02/20/25 02:40> Review of Systems 2 Review of Systems: All systems reviewed & are unremarkable except as noted in HPI and below <Lillie Bhatt PA-C - Last Filed: 02/20/25 02:40> PMFSH Social History Social History: Social History Substance use type: does not use <Lillie Bhatt PA-C - Last Filed: 02/20/25 02:40> Exam 2 Narrative: GENERAL: Well-appearing, well-nourished, and in no acute distress. HEAD: Normocephalic, atraumatic. EYES: EOMI. ENT: Nares clear, no rhinorrhea or epistaxis. Mucous membranes moist. NECK: Supple. CHEST: Clear to auscultation. No respiratory distress. HEART: Regular rate and rhythm. No murmur heard. Normal peripheral pulses. EXTREMITIES: Normal range of motion. No edema. SKIN: Warm, dry, no rash. NEURO: No focal deficits. Alert and oriented x3 PSYCH: Flat affect, anxious. Admits to SI with no plan. Denies HI. Not responding to internal stimuli. <Lillie Bhatt PA-C - Last Filed: 02/20/25 02:40> Course Course Emergency Course: Patient signed out to me pending crisis team evaluation and recommendation. Is reported the patient has been experiencing suicidal ideation for months. Trans patient who goes by Hemanth , he/him pronouns by report. Psych/crisis team spent extensive time with patient, approximately 2.5 hours. After thorough discussion, patient was safety planned for discharge home. I spoke with [facility] who confirmed resources were given and they discussed advice that had been given. Discharged in stable condition. <Cherrie Graham MD - Last Filed: 02/19/25 07:34> Vital Signs Vital signs: Vital Signs Temperature 97.2 F L 02/19/25 01:21 Pulse Rate 112 H 02/19/25 01:21 Respiratory Rate 14 02/19/25 01:21 Blood Pressure 131/87 02/19/25 01:21 Pulse Oximetry 99 02/19/25 01:21 Oxygen Delivery Room Air 02/19/25 01:21 Temperature 97.2 F L 02/19/25 01:21 Pulse Rate 99 02/19/25 05:18 Respiratory Rate 18 02/19/25 05:18 Blood Pressure 126/78 02/19/25 05:18 Pulse Oximetry 98 02/19/25 05:18 Oxygen Delivery Room Air 02/19/25 01:21 <Lillie Bhatt PA-C - Last Filed: 02/20/25 02:40> Vital Signs Temperature 97.2 F L 02/19/25 01:21 Pulse Rate 112 H 02/19/25 01:21 Respiratory Rate 14 02/19/25 01:21 Blood Pressure 131/87 02/19/25 01:21 Pulse Oximetry 99 02/19/25 01:21 Oxygen Delivery Room Air 02/19/25 01:21 Temperature 97.2 F L 02/19/25 01:21 Pulse Rate 99 02/19/25 05:18 Respiratory Rate 18 02/19/25 05:18 Blood Pressure 126/78 02/19/25 05:18 Pulse Oximetry 98 02/19/25 05:18 Oxygen Delivery Room Air 02/19/25 01:21 <Elina Robert MD - Last Filed: 02/19/25 06:45> Vital Signs Temperature 97.2 F L 02/19/25 01:21 Pulse Rate 112 H 02/19/25 01:21 Respiratory Rate 14 02/19/25 01:21 Blood Pressure 131/87 02/19/25 01:21 Pulse Oximetry 99 02/19/25 01:21 Oxygen Delivery Room Air 02/19/25 01:21 Temperature 97.2 F L 02/19/25 01:21 Pulse Rate 99 02/19/25 05:18 Respiratory Rate 18 02/19/25 05:18 Blood Pressure 126/78 02/19/25 05:18 Pulse Oximetry 98 02/19/25 05:18 Oxygen Delivery Room Air 02/19/25 01:21 <Cherrie Graham MD - Last Filed: 02/19/25 07:34> MDM - Psych MDM Narrative Medical decision making narrative: 19-year-old female who identifies as male with a past medical history of anxiety depression presents to the emergency department for suicidal thoughts for several months. Patient reportedly got into an argument with parents tonight which increased suicidal thoughts. Denies plan for suicide. Denies HI. Triage vitals with tachycardia 112. Patient is anxious appearing on exam. Will obtain psychiatric labs with plan to consult crisis. Pending workup and crisis consult at time of sign-out to Dr. Robert. // Medically clear for psychiatric evaluation. // [facility] arrived to evaluate patient. Dispo pending at time of sign out to oncoming ER physician. <Lillie Bhatt PA-C - Last Filed: 02/20/25 02:40> 19-year-old female who identifies as male with a past medical history of anxiety depression presents to the emergency department for suicidal thoughts for several months. Patient reportedly got into an argument with parents tonight which increased suicidal thoughts. Denies plan for suicide. Denies HI. Triage vitals with tachycardia 112. Patient is anxious appearing on exam. Will obtain psychiatric labs with plan to consult crisis. // Medically clear for psychiatric evaluation. // [facility] arrived to evaluate patient. Dispo pending at time of sign out to oncoming ER physician. <Elina Robert MD - Last Filed: 02/19/25 06:45> Lab Data Result diagrams: 02/19/25 01:34 02/19/25 01:34 <Lillie Bhatt PA-C - Last Filed: 02/20/25 02:40> Labs: Lab Results 02/19/25 02/19/25 Range/Units 01:34 01:37 WBC 7.1 (4.5-10.0) K/mm3 RBC 4.71 (4.2-5.4) M/mm3 Hgb 14.0 (12.0-15.0) g/dL Hct 43.8 (37.0-47.0) % MCV 93.0 (80-100) fl MCH 29.7 (26-34) pg MCHC 32.0 (32-36) g/dl RDW 11.9 (11.5-14.5) % Plt Count 284 (150-375) k/mm3 MPV 9.7 (7.4-10.4) fl Immature Gran % (Auto) 0.3 (0-0.5) % Neut % (Auto) 59.9 (45.5-73.1) % Lymph % (Auto) 27.0 (18.3-44.2) % Bowman % (Auto) 9.4 H (2.6-8.5) % Eos % (Auto) 2.8 (0-4.4) % Baso % (Auto) 0.6 (0.2-1.2) % Lymph # (Auto) 1.90 (0.9-3.2) K/mm3 Bowman # (Auto) 0.7 H (0.1-0.6) K/mm3 Eos # (Auto) 0.2 (0-0.3) K/mm3 Baso # (Auto) 0.0 (0.0-0.1) K/mm3 Abs Immat Gran (auto) 0.02 (0.00-0.031) K/mm3 Absolute Neuts (auto) 4.2 (1.3-6.7) K/mm3 Absolute Nucleated RBC 0.000 (0.0-0.012) K/mm3 Nucleated RBC % 0.0 (0.0-0.2) % Sodium 139 (137-145) mmol/L Potassium 3.7 (3.4-5.0) mmol/L Chloride 103 (98-107) mmol/L Carbon Dioxide 26 (22-30) mmol/L Anion Gap 10 (4-12) mmol/L BUN 9 (7-17) mg/dL Creatinine 0.66 L (0.7-1.0) mg/dL Estim Creat Clear Calc Not Reportable Estimated GFR > 60 (59 - ) Glucose 114 H (65-110) mg/dL Calcium 9.0 (8.4-10.2) mg/dL Total Bilirubin 0.4 (0.2-1.3) mg/dL AST 34 (14-36) U/L ALT 27 (6-35) U/L Alkaline Phosphatase 57 (38-126) U/L Total Protein 8.0 (6.3-8.2) g/dL Albumin 4.9 (3.5-5.1) g/dL TSH (Reflex) 1.590 (0.465-4.68) uIU/mL Urine Color Yellow (Yellow) Urine Appearance Clear (Clear) Urine pH 7.5 (5.0-9.0) Ur Specific [place] 1.019 (1.001-1.035) Urine Protein Negative (Negative) mg/dL Urine Glucose (UA) Negative (Negative) mg/dL Urine Ketones Negative (Negative) mg/dL Ur Blood (Man) Negative (Negative) Urine Nitrate Negative (Negative) Urine Bilirubin Negative (Negative) Urine Urobilinogen 1.0 (<2.0) mg/dL Leukocyte Esterase Rfl Negative (Negative) GEE/UL POC Urine HCG, Qual Negative (Negative) Urine Opiates Screen Negative (Negative) Urine Methadone Screen Negative (Negative) Ur Barbiturates Screen Negative (Negative) Ur Phencyclidine Scrn Negative (Negative) Ur Amphetamine Screen Negative (Negative) U Benzodiazepines Scrn Negative (Negative) Urine Cocaine Screen Negative (Negative) U Cannabinoids Screen Negative (Negative) Ethyl Alcohol < 10 (<10) mg/dL Influenza A (RT-PCR) Negative (Negative) Influenza B (RT-PCR) Negative (Negative) RSV (RT-PCR) Negative (Negative) SARS-CoV-2 RNA (RT-PCR) Negative (Negative) <Lillie Bhatt PA-C - Last Filed: 02/20/25 02:40> Lab Results 02/19/25 02/19/25 Range/Units 01:34 01:37 WBC 7.1 (4.5-10.0) K/mm3 RBC 4.71 (4.2-5.4) M/mm3 Hgb 14.0 (12.0-15.0) g/dL Hct 43.8 (37.0-47.0) % MCV 93.0 (80-100) fl MCH 29.7 (26-34) pg MCHC 32.0 (32-36) g/dl RDW 11.9 (11.5-14.5) % Plt Count 284 (150-375) k/mm3 MPV 9.7 (7.4-10.4) fl Immature Gran % (Auto) 0.3 (0-0.5) % Neut % (Auto) 59.9 (45.5-73.1) % Lymph % (Auto) 27.0 (18.3-44.2) % Bowman % (Auto) 9.4 H (2.6-8.5) % Eos % (Auto) 2.8 (0-4.4) % Baso % (Auto) 0.6 (0.2-1.2) % Lymph # (Auto) 1.90 (0.9-3.2) K/mm3 Bowman # (Auto) 0.7 H (0.1-0.6) K/mm3 Eos # (Auto) 0.2 (0-0.3) K/mm3 Baso # (Auto) 0.0 (0.0-0.1) K/mm3 Abs Immat Gran (auto) 0.02 (0.00-0.031) K/mm3 Absolute Neuts (auto) 4.2 (1.3-6.7) K/mm3 Absolute Nucleated RBC 0.000 (0.0-0.012) K/mm3 Nucleated RBC % 0.0 (0.0-0.2) % Sodium 139 (137-145) mmol/L Potassium 3.7 (3.4-5.0) mmol/L Chloride 103 (98-107) mmol/L Carbon Dioxide 26 (22-30) mmol/L Anion Gap 10 (4-12) mmol/L BUN 9 (7-17) mg/dL Creatinine 0.66 L (0.7-1.0) mg/dL Estim Creat Clear Calc Not Reportable Estimated GFR > 60 (59 - ) Glucose 114 H (65-110) mg/dL Calcium 9.0 (8.4-10.2) mg/dL Total Bilirubin 0.4 (0.2-1.3) mg/dL AST 34 (14-36) U/L ALT 27 (6-35) U/L Alkaline Phosphatase 57 (38-126) U/L Total Protein 8.0 (6.3-8.2) g/dL Albumin 4.9 (3.5-5.1) g/dL TSH (Reflex) 1.590 (0.465-4.68) uIU/mL Urine Color Yellow (Yellow) Urine Appearance Clear (Clear) Urine pH 7.5 (5.0-9.0) Ur Specific [place] 1.019 (1.001-1.035) Urine Protein Negative (Negative) mg/dL Urine Glucose (UA) Negative (Negative) mg/dL Urine Ketones Negative (Negative) mg/dL Ur Blood (Man) Negative (Negative) Urine Nitrate Negative (Negative) Urine Bilirubin Negative (Negative) Urine Urobilinogen 1.0 (<2.0) mg/dL Leukocyte Esterase Rfl Negative (Negative) GEE/UL POC Urine HCG, Qual Negative (Negative) Urine Opiates Screen Negative (Negative) Urine Methadone Screen Negative (Negative) Ur Barbiturates Screen Negative (Negative) Ur Phencyclidine Scrn Negative (Negative) Ur Amphetamine Screen Negative (Negative) U Benzodiazepines Scrn Negative (Negative) Urine Cocaine Screen Negative (Negative) U Cannabinoids Screen Negative (Negative) Ethyl Alcohol < 10 (<10) mg/dL Influenza A (RT-PCR) Negative (Negative) Influenza B (RT-PCR) Negative (Negative) RSV (RT-PCR) Negative (Negative) SARS-CoV-2 RNA (RT-PCR) Negative (Negative) <Elina Robert MD - Last Filed: 02/19/25 06:45> Lab Results 02/19/25 02/19/25 Range/Units 01:34 01:37 WBC 7.1 (4.5-10.0) K/mm3 RBC 4.71 (4.2-5.4) M/mm3 Hgb 14.0 (12.0-15.0) g/dL Hct 43.8 (37.0-47.0) % MCV 93.0 (80-100) fl MCH 29.7 (26-34) pg MCHC 32.0 (32-36) g/dl RDW 11.9 (11.5-14.5) % Plt Count 284 (150-375) k/mm3 MPV 9.7 (7.4-10.4) fl Immature Gran % (Auto) 0.3 (0-0.5) % Neut % (Auto) 59.9 (45.5-73.1) % Lymph % (Auto) 27.0 (18.3-44.2) % Bowman % (Auto) 9.4 H (2.6-8.5) % Eos % (Auto) 2.8 (0-4.4) % Baso % (Auto) 0.6 (0.2-1.2) % Lymph # (Auto) 1.90 (0.9-3.2) K/mm3 Bowman # (Auto) 0.7 H (0.1-0.6) K/mm3 Eos # (Auto) 0.2 (0-0.3) K/mm3 Baso # (Auto) 0.0 (0.0-0.1) K/mm3 Abs Immat Gran (auto) 0.02 (0.00-0.031) K/mm3 Absolute Neuts (auto) 4.2 (1.3-6.7) K/mm3 Absolute Nucleated RBC 0.000 (0.0-0.012) K/mm3 Nucleated RBC % 0.0 (0.0-0.2) % Sodium 139 (137-145) mmol/L Potassium 3.7 (3.4-5.0) mmol/L Chloride 103 (98-107) mmol/L Carbon Dioxide 26 (22-30) mmol/L Anion Gap 10 (4-12) mmol/L BUN 9 (7-17) mg/dL Creatinine 0.66 L (0.7-1.0) mg/dL Estim Creat Clear Calc Not Reportable Estimated GFR > 60 (59 - ) Glucose 114 H (65-110) mg/dL Calcium 9.0 (8.4-10.2) mg/dL Total Bilirubin 0.4 (0.2-1.3) mg/dL AST 34 (14-36) U/L ALT 27 (6-35) U/L Alkaline Phosphatase 57 (38-126) U/L Total Protein 8.0 (6.3-8.2) g/dL Albumin 4.9 (3.5-5.1) g/dL TSH (Reflex) 1.590 (0.465-4.68) uIU/mL Urine Color Yellow (Yellow) Urine Appearance Clear (Clear) Urine pH 7.5 (5.0-9.0) Ur Specific [place] 1.019 (1.001-1.035) Urine Protein Negative (Negative) mg/dL Urine Glucose (UA) Negative (Negative) mg/dL Urine Ketones Negative (Negative) mg/dL Ur Blood (Man) Negative (Negative) Urine Nitrate Negative (Negative) Urine Bilirubin Negative (Negative) Urine Urobilinogen 1.0 (<2.0) mg/dL Leukocyte Esterase Rfl Negative (Negative) GEE/UL POC Urine HCG, Qual Negative (Negative) Urine Opiates Screen Negative (Negative) Urine Methadone Screen Negative (Negative) Ur Barbiturates Screen Negative (Negative) Ur Phencyclidine Scrn Negative (Negative) Ur Amphetamine Screen Negative (Negative) U Benzodiazepines Scrn Negative (Negative) Urine Cocaine Screen Negative (Negative) U Cannabinoids Screen Negative (Negative) Ethyl Alcohol < 10 (<10) mg/dL Influenza A (RT-PCR) Negative (Negative) Influenza B (RT-PCR) Negative (Negative) RSV (RT-PCR) Negative (Negative) SARS-CoV-2 RNA (RT-PCR) Negative (Negative) <Cherrie Graham MD - Last Filed: 02/19/25 07:34> Discharge Plan Discharge Clinical Impression: Depression <Lillie Bhatt PA-C - Last Filed: 02/20/25 02:40> Patient Disposition: Home <Lillie Bhatt PA-C - Last Filed: 02/20/25 02:40> Condition: Stable <RAGHAVENDRA Hubbard Last Filed: 02/20/25 02:40> Instructions: Antibiotic Form, Depression (ED), Help Prevent Suicide (ED) <Lillie Bhatt PA-C - Last Filed: 02/20/25 02:40> Additional Instructions: Please use the resources provided and follow-up with mental health services. If you start having thoughts about hurting yourself or anyone else, or anything else concerning, please come back to the emergency room. If you need a primary care physician, the name of the doctors listed below. <Lillie Bhatt PA-C - Last Filed: 02/20/25 02:40> Patient Language: Estonian <Lillie Bhatt PA-C - Last Filed: 02/20/25 02:40> Prescriptions: No Action No Home Medications <Lillie Bhatt PA-C - Last Filed: 02/20/25 02:40> Follow-up/Referrals: PHYSICIAN NOT ON STAFF,NONSTAFF [Primary Care Provider] - Pablo Lynn MD [Physician] - <Lillie Bhatt PA-C - Last Filed: 02/20/25 02:40> Stand Alone Forms: Work/School Release IP <Lillie Bhatt PA-C - Last Filed: 02/20/25 02:40> Time of Disposition: 07:33 <Lillie Bhatt PA-C - Last Filed: 02/20/25 02:40> 07:33 <Elina Robert MD - Last Filed: 02/19/25 06:45> 07:33 <Cherrie Graham MD - Last Filed: 02/19/25 07:34>
[2025-02-19 01:39] LABS: BEDSIDEPREGUCG Negative (Negative)
[2025-02-19 01:43] LABS: Basophils Percent Auto 0.6 % (0.2-1.2); Eosinophils Absolute Auto 0.2 K/mm3 (0-0.3); Eosinophils Percent Auto 2.8 % (0-4.4); Hematocrit 43.8 % (37.0-47.0); Immature Granulocyte Absolute 0.02 K/mm3 (0.00-0.031); Immature Granulocyte Percent A 0.3 % (0-0.5); Mean Corpuscular Hemoglobin 29.7 pg (26-34); Mean Platelet Volume 9.7 fl (7.4-10.4); Monocytes Absolute Auto 0.7 K/mm3 (0.1-0.6); Monocytes Percent Auto 9.4 % (2.6-8.5); Neutrophils Absolute Auto 4.2 K/mm3 (1.3-6.7); Neutrophils Percent Auto 59.9 % (45.5-73.1); Platelet Count Result 284 k/mm3 (150-375); Red Blood Count 4.71 M/mm3 (4.2-5.4); Red Cell Distribution Width 11.9 % (11.5-14.5); White Blood Count 7.1 K/mm3 (4.5-10.0)
[2025-02-19 01:44] LABS: Add Urine Microscopic? NO; Appearance Urine Clear (Clear); Bilirubin Urine Negative (Negative); Blood Urine Negative (Negative); Color Urine Yellow (Yellow); Glucose Urine UA Negative (Negative); Ketones Urine Negative (Negative); Leukocyte Esterase Ur Negative LEU/UL (Negative); Nitrate Urine Negative (Negative); Protein Urine Negative (Negative); Specific Grav Ur 1.019 (1.001-1.035); pH Urine 7.5 (5.0-9.0)
[2025-02-19 01:54] LABS: Alanine Aminotransferase 27 U/L (6-35); Albumin Level 4.9 g/dL (3.5-5.1); Alkaline Phosphatase 57 U/L (38-126); Anion Gap 10 mmol/L (4-12); Aspartate Amino Transferase 34 U/L (14-36); Bilirubin,Total 0.4 mg/dL (0.2-1.3); Blood Urea Nitrogen 9 mg/dL (7-17); Carbon Dioxide 26 mmol/L (22-30); Chloride 103 mmol/L (98-107); Estimated Glomerular Filt Rate > 60; Glucose 114 mg/dL (65-110); Potassium 3.7 mmol/L (3.4-5.0); Sodium 139 mmol/L (137-145)
[2025-02-19 01:55] LABS: Ethanol < 10 mg/dL (<10)
[2025-02-19 01:57] LABS: Amphetamine Screen Urine Negative (Negative); Barbiturate Screen Urine Negative (Negative); Benzodiazepines Screen Urine Negative (Negative); Cannabinoid Screen Urine Negative (Negative); Cocaine Screen Urine Negative (Negative); Methadone Screen Urine Negative (Negative); Opiate Screen Urine Negative (Negative); Phencyclidine Screen Urine Negative (Negative)
--- OUTSIDE RECORDS SUMMARY | 2025-02-19 02:12 | XMS_ITS | Referral Summary ---
Author Organization [facility] Address [address] [place] [address] Care Team Providers Care Dry Mixer Name Role Phone Inez Bui NP Primary Care Provider [phone] Encounters Date Type Department Care Team Description 01/07/2025 Orders Only [facility] Primary Care at [address] [phone] Inez Bui NP Mood disorder (Primary Dx) 01/07/2025 11:00 AM CDT Office Visit [facility] Primary Care at [address] [phone] Inez Bui NP Mood disorder (Primary Dx); Chronic pain of both knees 11/26/2024 Results Follow-Up [facility] Primary Care at [address] [phone] Inez Bui NP Trichomonas vaginalis PCR Urine, HIV 1/2 Antibody plus p24 Antigen Blood, Hepatitis panel, acute Blood, Additional followed-up results: 7 11/23/2024 11:05 AM CHORAL DIRECTOR Lab [address] Annual physical exam; Screening for thyroid disorder; Screen for sexually transmitted diseases; Encounter for hepatitis C screening test for low risk patient 11/23/2024 Orders Only [facility] Primary Care at [address] [phone] Inez Bui NP Mood disorder; Chronic pain of both knees 11/23/2024 10:30 AM CHORAL DIRECTOR Office Visit [facility] Primary Care at [address] [place] [address] Inez Bui NP Annual physical exam (Primary [...] counselor Assessment & Plan (11/23/2024 11:24 AM CHORAL DIRECTOR): -chronic, not at/near goal -Discussed/ordered labs -Start [...] referral Assessment & Plan (11/23/2024 11:25 AM CHORAL DIRECTOR): -chronic, not at/near goal -Patient reports completing [...] CDT Gender Identity Female 10/01/2024 8:36 PM CHORAL DIRECTOR Sexual Orientation Don't know 10/01/2024 8: 36 PM CHORAL DIRECTOR Last Filed Vital Signs Vital Sign Reading [...] Diagnosis Comments EGFR Routine 11/23/2024 11:02 AM CHORAL DIRECTOR Annual physical exam Screening for thyroid disorder Screen for sexually transmitted diseases Encounter for hepatitis C screening test for low risk patient DIFFERENTIAL AUTO Routine 11/23/2024 11: 02 AM CHORAL DIRECTOR Annual physical exam Screening for thyroid disorder Screen for sexually transmitted diseases Encounter for hepatitis C screening test for low risk patient CBC WITH AUTO DIFFERENTIAL Routine 11/23/2024 11:02 AM CHORAL DIRECTOR Annual physical exam Screening for thyroid disorder Screen for sexually transmitted diseases Encounter for hepatitis C screening test for low risk patient COMPREHENSIVE METABOLIC PANEL Routine 11/23/2024 11:02 AM CHORAL DIRECTOR Annual physical exam Screening for thyroid disorder Screen for sexually transmitted diseases Encounter for hepatitis C screening test for low risk patient THYROID FUNCTION CASCADE Routine 11/23/2024 11:02 AM CHORAL DIRECTOR Annual physical exam Screening for thyroid disorder Screen for sexually transmitted diseases Encounter for hepatitis C screening test for low risk patient N. GONORRHOEAE/C. TRACHOMATIS AMPLIFICATION Routine 11/23/2024 11:02 AM CHORAL DIRECTOR Annual physical exam Screening for thyroid disorder Screen for sexually transmitted diseases Encounter for hepatitis C screening test for low risk patient HEPATITIS PANEL, ACUTE Routine 11:02 AM CHORAL DIRECTOR Annual physical exam Screening for thyroid disorder Screen for sexually transmitted diseases Encounter for hepatitis C screening test for low risk patient HIV 1/2 ANTIBODY PLUS P24 ANTIGEN Routine 11/23/2024 11:02 AM CHORAL DIRECTOR Annual physical exam Screening for thyroid disorder Screen for sexually transmitted diseases Encounter for hepatitis C screening test for low risk patient RPR Routine 11/23/2024 11:02 AM CHORAL DIRECTOR Annual physical exam Screening for thyroid disorder Screen for sexually transmitted diseases Encounter for hepatitis C screening test for low risk patient TRICHOMONAS VAGINALIS PCR Routine 11/23/2024 11:02 AM CHORAL DIRECTOR Annual physical exam Screening for thyroid disorder Screen for sexually transmitted diseases Encounter for hepatitis C screening test for low risk patient from Last 3 Months Results * N. gonorrhoeae/C. trachomatis Amplification Urine (11/23/2024 11:02 AM CHORAL DIRECTOR) C. trachomatis Not Detected [facility] Comment:Testing performed by : [facility], [address] [place] [address]., [id number] N. gonorrhoeae Not Detected CHICA DENG ([place]) Comment: Interpretive Data This assay detects Chlamydia trachomatis and Neisseria gonorrhoeae by nucleic acid amplification testing (NAAT). This assay has been cleared by the [place] Food and Drug administration. The performance characteristics of this test have been verified by the [facility]ious Disease laboratory. The performance characteristics of this test have not been evaluated in individuals less than 14 years of age. Current Interpretive Data was last revised on 2023. Testing performed by: [facility], [address] [place] [address]., [id number] Urine (None) 11/23/2024 11:0 2 AM CHORAL DIRECTOR 11/23/2024 5:25 PM CHORAL DIRECTOR Inez Rodriguezman ANNABELLA LAB MICROBIOLOGY - GENERAL O RDERABLES Final Result KIMO ISH ([place]) 1 [facility] Department [place] [address] [facility] * Trichomonas vaginalis PCR Urine (11/23/2024 11:02 AM CHORAL DIRECTOR) Pathologist [facility] Trichomonas DNA Not Detected [facility] Comment: Interpretive Data This assay detects Trichomonas vaginalis by nucleic acid amplification testing (NAAT). This assay has been cleared by the [place] Food and Drug administration. The performance characteristics of this test have been verified by the [facility] laboratory. The performance of this test has not been evaluated in individuals less than 18 years of age. Current Interpretive Data was last revised on 2023. Testing performed by: [facility], [address] [place] [address]., [id number] Urine 11/23/2024 11:0 2 AM CHORAL DIRECTOR 11/23/2024 5:25 PM CHORAL DIRECTOR Inez Bui NP LAB MICROBIOLOGY - GENERAL O RDERABLES Final Result Performing Organization Address City/Special Care [facility]/ZIP Co de Phone Number KIMO DENG ([place]) 1 [facility] Department [place] [employer] [place] [address] [facility] * eGFR (11/23/2024 11:02 AM CHORAL DIRECTOR) eGFR >90 >=60 mL/min/1. 73 m2 Comment: [...] reviewed 2021. Blood 11/23/2024 11:0 2 AM CHORAL DIRECTOR 11/23/2024 1:38 PM CHORAL DIRECTOR Inez Bui NP LAB BLOOD ORDERABLES Final R esult Performing Organization Address City/[facility]/ZIP Co de Phone Number KIMO DENG ([place]) 1 [facility] Department [place] [employer] [place] [address] * Differential, auto (11/23/2024 11:02 AM CHORAL DIRECTOR) Neutrophil abs 2.2 1.5 - 6.5 K/cumm [...] on 2018. Blood 11/23/2024 11:0 2 AM CHORAL DIRECTOR 11/23/2024 1:38 PM CHORAL DIRECTOR [facility] LAB BLOOD ORDERABLES Final R esult Performing Organization Address [facility] Co de Phone Number KIMO DENG ([place]) 1 [facility] [employer] [place] [address] * Thyroid Function [place] (11/23/2024 11:02 AM CHORAL DIRECTOR) [facility] TSH 1.47 0.30 - 4.20 mcIUnit/mL Blood 11/23/2024 11:0 2 AM CHORAL DIRECTOR 11/23/2024 1:38 PM CHORAL DIRECTOR [facility] LAB BLOOD ORDERABLES Final R esult Performing Organization Address [facility] de Phone Number KIMO DENG (SEGUIN) 1 [place] [address] * HIV 1/2 Antibody plus p24 Antigen Blood (11/23/2024 11:02 AM CHORAL DIRECTOR) [facility] HIV 1/2 ab + p24 ag Nonreactive Nonreactive Comment: Nonreactive for HIV-1 antigen and HIV-1/HIV-2 antibodies. No laboratory evidence of HIV infection. If acute HIV infection is suspected, consider testing for HIV-1 RNA. Testing performed by: [facility], [address] [place] [address]., [id number] Blood 11/23/2024 11:0 2 AM CHORAL DIRECTOR 11/23/2024 4:37 PM CHORAL DIRECTOR [facility] LAB MICROBIOLOGY - GENERAL O RDERABLES Final Result Performing Organization Address [facility] Co de Phone Number KIMO DENG ([place]) 1 [facility] [place] [place] [address] * CBC with auto differential (11/23/2024 11:02 AM CHORAL DIRECTOR) [facility] WBC 4.3 3.8 - 9.9 K/cumm Hgb 15.0 11.9 - 15.5 g/dL [facility] ([place]) Hct 44.3 35.6 - 45.5 % [facility] ([place]) Plt 294 150 - 400 [...] [facility] ([place]) Blood 11/23/2024 11:0 2 AM CHORAL DIRECTOR 11/23/2024 1:38 PM CHORAL DIRECTOR [facility] LAB BLOOD ORDERABLES Final R esult KIMO DENG ([place]) 1 [facility] Department [place] [address] * Hepatitis panel, acute Blood (11/23/2024 11:02 AM CHORAL DIRECTOR) Hep A IgM Nonreactive Nonreactive Comment: Interpretive Data: If Hep A IgM Ab is reported as Equivocal, a new sample should be drawn in two weeks for testing. Current interpretive data was last revised on 19. Testing performed by: [facility], [address] [place] [address]., [id number] Hep B core IgM Nonreactive Nonreactive C [facility] ([place]) Comment: Interpretive Data If HepB Core IgM Ab is reported as Equivocal, a new sample should be drawn in two weeks for testing. Current interpretive data was last revised on 19. Testing performed by: [address] [id number] Hep C Ab Nonreactive Nonreactive [facility] [...] last revised on 2019. Testing performed by: [facility], [address] [place] [address]., [id number] HepBsAg Nonreactive Nonreactive [facility] ([place]) Comment:Testing performed by : [facility], [address] [place] [address]., [id number] Blood 11/23/2024 11:0 2 AM CHORAL DIRECTOR 11/23/2024 4:37 PM CHORAL DIRECTOR Inez Bui LAB MICROBIOLOGY - GENERAL O RDERABLES Final Result Performing Organization Address City/[facility] Care [facility]/ZIP Co de Phone Number [facility] ([place]) 1 [facility] [place] [place] [address] * RPR Blood (11/23/2024 11:02 AM CHORAL DIRECTOR) RPR Nonreactive Nonreactive Comment:Testing performed by : [facility], [address] [place] [address]., [id number] Blood 11/23/2024 11:0 2 AM CHORAL DIRECTOR 11/23/2024 4:37 PM CHORAL DIRECTOR [facility] LAB MICROBIOLOGY - GENERAL O RDERABLES Final Result [facility] ([place]) 1 [facility] [place] [place] [address] * Comprehensive metabolic panel (11/23/2024 11:02 AM CHORAL DIRECTOR) Sodium 140 135 - 145 mmol/L Potassium, pl 4.1 3.3 - 4.9 mmol/L [facility] ([place]) Chloride 101 97 - 110 mmol/L [facility] ([place]) CO2 25 22 - 32 mmol/L [facility] ([place]) Anion gap 14 2 [...] [facility] ([place]) Blood 11/23/2024 11:0 2 AM CHORAL DIRECTOR 11/23/2024 1:38 PM CHORAL DIRECTOR Inez Rodriguezman ANNABELLA LAB BLOOD ORDERABLES Final R esult [facility] ([place]) 1 [facility] [place] [address] from Last 3 Months Insurance [employer] [facility] PPO [facility] PPO [facility] PPO Care Teams Dry Mixer Relationship Specialty Start Date End Date Inez Bui NP [address] [facility] [address] [place] [id number] PCP - General Family Medicine 05/06/23
--- OUTSIDE RECORDS SUMMARY | 2025-02-19 02:12 | XMS_ITS | Clinical Summary ---
Author Organization [facility] Address [address] [place] [address] Care Team Providers Care Supervisor Sawing [employer] Name Role Phone Inez Bui NP Primary Care Provider [phone] Allergies No known active allergies Medications naproxen [...] counselor Assessment & Plan (11/23/2024 11:24 AM TICK SEWER): -chronic, not at/near goal -Discussed/ordered labs -Start [...] referral Assessment & Plan (11/23/2024 11:25 AM TICK SEWER): -chronic, not at/near goal -Patient reports completing [...] Description 01/07/2025 11:00 AM CDT Office Visit [facility] Primary Care at [address] [place] [address] Inez Bui NP Mood disorder (Primary Dx); Chronic pain of both knees 01/07/2025 Orders Only [facility] Primary Care at [address] [phone] Inez Bui NP Mood disorder (Primary Dx) 11/26/2024 Results Follow-Up [facility] Primary Care at [address] [phone] Inez Bui NP Trichomonas vaginalis PCR Urine, HIV 1/2 Antibody plus p24 Antigen Blood, Hepatitis panel, acute Blood, Additional followed-up results: 7 11/23/2024 11:05 AM TICK SEWER Lab [address] Annual physical exam; Screening for thyroid disorder; Screen for sexually transmitted diseases; Encounter for hepatitis C screening test for low risk patient 11/23/2024 10:30 AM TICK SEWER Office Visit [facility] Primary Care at [address] [phone] Inez Bui NP Annual physical exam (Primary Dx); Mood disorder; Chronic pain of both knees; Screening for thyroid disorder; Screen for sexually transmitted diseases; Encounter for hepatitis C screening test for low risk patient; Influenza vaccination declined 11/23/2024 Orders Only [facility] Primary Care at [address] [phone] Inez Bui NP Mood disorder; Chronic pain [...] CDT Gender Identity Female 10/01/2024 8:36 PM TICK SEWER Sexual Orientation Don't know 10/01/2024 8: 36 PM TICK SEWER Obstetrics History Last Filed Vital Signs Vital [...] Diagnosis Comments EGFR Routine 11/23/2024 11:02 AM TICK SEWER Annual physical exam Screening for thyroid disorder Screen for sexually transmitted diseases Encounter for hepatitis C screening test for low risk patient DIFFERENTIAL AUTO Routine 11/23/2024 11: 02 AM TICK SEWER Annual physical exam Screening for thyroid disorder Screen for sexually transmitted diseases Encounter for hepatitis C screening test for low risk patient CBC WITH AUTO DIFFERENTIAL Routine 11/23/2024 11:02 AM TICK SEWER Annual physical exam Screening for thyroid disorder Screen for sexually transmitted diseases Encounter for hepatitis C screening test for low risk patient COMPREHENSIVE METABOLIC PANEL Routine 11/23/2024 11:02 AM TICK SEWER Annual physical exam Screening for thyroid disorder Screen for sexually transmitted diseases Encounter for hepatitis C screening test for low risk patient THYROID FUNCTION CASCADE Routine 11/23/2024 11:02 AM TICK SEWER Annual physical exam Screening for thyroid disorder Screen for sexually transmitted diseases Encounter for hepatitis C screening test for low risk patient N. GONORRHOEAE/C. TRACHOMATIS AMPLIFICATION Routine 11/23/2024 11:02 AM TICK SEWER Annual physical exam Screening for thyroid disorder Screen for sexually transmitted diseases Encounter for hepatitis C screening test for low risk patient HEPATITIS PANEL, ACUTE Routine 11:02 AM TICK SEWER Annual physical exam Screening for thyroid disorder Screen for sexually transmitted diseases Encounter for hepatitis C screening test for low risk patient HIV 1/2 ANTIBODY PLUS P24 ANTIGEN Routine 11/23/2024 11:02 AM TICK SEWER Annual physical exam Screening for thyroid disorder Screen for sexually transmitted diseases Encounter for hepatitis C screening test for low risk patient RPR Routine 11/23/2024 11:02 AM TICK SEWER Annual physical exam Screening for thyroid disorder Screen for sexually transmitted diseases Encounter for hepatitis C screening test for low risk patient TRICHOMONAS VAGINALIS PCR Routine 11/23/2024 11:02 AM TICK SEWER Annual physical exam Screening for thyroid disorder Screen for sexually transmitted diseases Encounter for hepatitis C screening test for low risk patient from Last 3 Months Results * N. gonorrhoeae/C. trachomatis Amplification Urine (11/23/2024 11:02 AM TICK SEWER) C. trachomatis Not Detected [facility] Comment:Testing performed by : [facility], [address] [facility], [place]., [address] N. gonorrhoeae Not Detected [facility] ([place]) Comment: Interpretive Data This assay detects Chlamydia trachomatis and Neisseria gonorrhoeae by nucleic acid amplification testing (NAAT). This assay has been cleared by the [place] Food and Drug administration. The performance characteristics of this test have been verified by the [facility] Molecular Infectious Disease laboratory. The performance characteristics of this test have not been evaluated in individuals less than 14 years of age. Current Interpretive Data was last revised on 2023. Testing performed by: [facility], [address] [place]., [address] Urine (None) 11/23/2024 11:0 2 AM TICK SEWER 11/23/2024 5:25 PM TICK SEWER Inez Bui LAB MICROBIOLOGY - GENERAL O RDERABLES Final Result Performing Organization Address [facility] Co de Phone Number [facility] ([place]) [address] [place] [address] [place] [address] [facility] * Trichomonas vaginalis PCR Urine (11/23/2024 11:02 AM TICK SEWER) Pathologist [facility] Trichomonas DNA Not Detected [facility] Comment: Interpretive Data This assay detects Trichomonas vaginalis by nucleic acid amplification testing (NAAT). This assay has been cleared by the [place] Food and Drug administration. The performance characteristics of this test have been verified by the [facility] Molecular Infectious Disease laboratory. The performance of this test has not been evaluated in individuals less than 18 years of age. Current Interpretive Data was last revised on 2023. Testing performed by: [facility], [address] [place]., [address] Urine 11/23/2024 11:0 2 AM TICK SEWER 11/23/2024 5:25 PM TICK SEWER [facility] - GENERAL O RDERABLES Final Result Performing Organization Address [facility] Co de Phone Number [facility] ([place]) 1 [facility] [place] [address] BJ * eGFR (11/23/2024 11:02 AM TICK SEWER) eGFR >90 >=60 mL/min/1. 73 m2 Comment: [...] reviewed 2021. Blood 11/23/2024 11:0 2 AM TICK SEWER 11/23/2024 1:38 PM TICK SEWER Inez Bui NP LAB BLOOD ORDERABLES Final R esult [facility] ([place]) 1 [facility] Department [place] [address] * Differential, auto (11/23/2024 11:02 AM TICK SEWER) Neutrophil abs 2.2 1.5 - 6.5 K/cumm Imm gran abs 0.0 0.0 - 0.1 K/cumm [facility] ([place]) Lymphocyte abs 1.6 0.8 - 3.3 K/cumm [facility] ([place]) Monocyte abs 0.3 0.2 - 0.8 K/cumm [facility] ([place]) Eosinophil abs 0.1 0.0 - 0.5 K/cumm [facility] ([place]) Basophil abs 0.1 0.0 - 0.1 K/cumm [facility] ([place]) Neutrophil pct 50.1 % [facility] [...] on 2018. Blood 11/23/2024 11:0 2 AM TICK SEWER 11/23/2024 1:38 PM TICK SEWER Inez Bui NP LAB BLOOD ORDERABLES Final R esult [facility] ([place]) 1 [facility] Department of Laboratories [place], [place] [id number] * Thyroid Function Sac (11/23/2024 11:02 AM TICK SEWER) TSH 1.47 0.30 - 4.20 mcIUnit/mL Blood 11/23/2024 11:0 2 AM TICK SEWER 11/23/2024 1:38 PM TICK SEWER Inez Bui LAB BLOOD ORDERABLES Final R esult [facility]) 1 [facility] [place] [address] * HIV 1/2 Antibody plus p24 Antigen Blood (11/23/2024 11:02 AM TICK SEWER) [facility] HIV 1/2 ab + p24 ag Nonreactive Nonreactive Comment: Nonreactive for HIV-1 antigen and HIV-1/HIV-2 antibodies. No laboratory evidence of HIV infection. If acute HIV infection is suspected, consider testing for HIV-1 RNA. Testing performed by: [facility], [address] [place] [address]., [address] Blood 11/23/2024 11:0 2 AM TICK SEWER 11/23/2024 4:37 PM TICK SEWER Inez Bui LAB MICROBIOLOGY - GENERAL O RDERABLES Final Result [facility] ([place]) 1 [facility] [place] [address] * CBC with auto differential (11/23/2024 11:02 AM TICK SEWER) [facility] WBC 4.3 3.8 - 9.9 K/cumm Hgb 15.0 11.9 - 15.5 g/dL [facility] Hct 44.3 35.6 - 45.5 % [facility] Plt 294 150 - 400 K/cumm [facility] ([place]) MPV 9.8 9.1 - 12.3 fL [facility] RBC 4.84 3.90 - 5.20 M/cumm [facility] ([place] MCV 91.5 81.3 - 96.[address] [facility] ([place]) MCH 31.0 27.1 - 33.3 pg [facility] MCHC 33.9 32.3 - 35.7 g/dL [facility] ([place]) RDW CV 11.6 11.1 - 14.9 % [facility] ([place]) RDW SD 38.9 35.7 - 48.1 fL [facility] ([place]) NRBC abs 0.00 0.00 - 0.01 K/cumm [facility] ([place]) Blood 11/23/2024 11:0 2 AM TICK SEWER 11/23/2024 1:38 PM TICK SEWER Inez Bui NP LAB BLOOD ORDERABLES Final R esult [facility] ([place]) 1 [facility] Department [place] [address] * Hepatitis panel, acute Blood (11/23/2024 11:02 AM TICK SEWER) Hep A IgM Nonreactive Nonreactive Comment: Interpretive Data: If Hep A IgM Ab is reported as Equivocal, a new sample should be drawn in two weeks for testing. Current interpretive data was last revised on 19. Testing performed by: [facility], [address] [place] [address]., [address] Hep B core IgM Nonreactive Nonreactive C NATALIE [facility] ([place]) Comment: Interpretive Data If HepB Core IgM Ab is reported as Equivocal, a new sample should be drawn in two weeks for testing. Current interpretive data was last revised on 19. Testing performed by: [facility], [address] [place] [address], [place] [address] Hep C Ab Nonreactive Nonreactive [facility] [...] last revised on 2019. Testing performed by: [address] [place] [address] HepBsAg Nonreactive Nonreactive [facility] ([place]) Comment:Testing performed by : [facility], [address] [place] [address]., [address] Blood 11/23/2024 11:0 2 AM TICK SEWER 11/23/2024 4:37 PM TICK SEWER Inez Bui MANUFACTURING ENGINEER CHIEF LAB MICROBIOLOGY - GENERAL O RDERABLES Final Result Performing Organization Address City/[facility]/ZIP Co de Phone Number [facility] ([place]) 1 [facility] [place] [address] * RPR Blood (11/23/2024 11:02 AM TICK SEWER) RPR Nonreactive Nonreactive Comment:Testing performed by : [facility], [address] [place] [address], [address] Blood 11/23/2024 11:0 2 AM TICK SEWER 11/23/2024 4:37 PM TICK SEWER Inez Bui MANUFACTURING ENGINEER CHIEF LAB MICROBIOLOGY - GENERAL O RDERABLES Final Result Performing Organization Address [facility] Co de Phone Number [facility] ([place]) [address] [place] [address] * Comprehensive metabolic panel (11/23/2024 11:02 AM TICK SEWER) Sodium 140 135 - 145 mmol/L Potassium, pl 4.1 3.3 - 4.9 mmol/L [facility] ([place]) Chloride 101 97 - 110 mmol/L [facility] ([place]) CO2 25 22 - 32 mmol/L [facility] ([place]) Anion gap 14 2 - 15 mmol/L [facility] ([place]) BUN 9 6 - 25 mg/dL [facility] ([place]) Creatinine 0.67 0.60 - 1.10 mg/dL [facility] ([place]) Glucose 90 70 - 199 mg/dL [facility] ([place]) Comment: Interpretive Data Fasting glucose [...] [facility] ([place]) Blood 11/23/2024 11:0 2 AM TICK SEWER 11/23/2024 1:38 PM TICK SEWER Inez Bui NP LAB BLOOD ORDERABLES Final R esult [facility] ([place]) 1 [facility] Department of Laboratories [place], [place] [address] from Last 3 Months Insurance [facility] PPO [facility] PPO [facility] PPO Care Teams Supervisor Sawing And Assembly Relationship Specialty Start Date End Date Inez Bui NP [address] [facility] [place] [address] [place] [address] PCP - General Family Medicine 05/06/23
[2025-02-19 02:37] LABS: Influenza A QL RT-PCR Negative (Negative); Influenza B QL RT-PCR Negative (Negative); RSV RNA, RT-PCR Negative (Negative); SARS-CoV-2 RNA PCR Negative (Negative)
--- NOTE | 2025-02-19 03:07 | PC.NURSE ---
Rn spoke with [facility] at 0256 for pt. Due to pt insurnace pt argueta not meet criteria. RN called Crisis at this time to come out and evaluate pt.
[2025-02-19 05:18] VITALS: BP 126/78; PULSE 99; RESP 18; O2SAT 98
== END 2025-02-19 07:41 | disposition home or self-care (01) ==
PROVIDERS: Emergency Provider Emergency Medicine
DX: F32.A Depression, unspecified (principal); Z11.52 Encounter for screening for COVID-19; F41.9 Anxiety disorder, unspecified; F64.0 Transsexualism
CPT/HCPCS: 36415; 80053; 80307; 81003; 81025; 82077; 84443; 85025; 87637; 99284

== ENCOUNTER 2025-09-13 03:41 | Emergency (ER) | payer OTHER, MEDICAID, SELFPAY ==
--- NOTE | ~2025-09-13 | XR_ITS ---
Examination: XR elbow RT 2V, XR shoulder RT min 2V, XR humerus RT Clinical History: humerus/elbow pain, no known trauma Comparison: None Technique: 4 views right shoulder, 2 views right humerus, 2 views right elbow Findings/impression: Right shoulder: 1. No fracture or dislocation. Right humerus: 1. No fracture. Right elbow: 1. No fracture or dislocation on 2 view series. Reviewed, dictated and finalized at location R. ING COORDINATOR
--- OUTSIDE RECORDS SUMMARY | 2025-09-13 03:44 | XMS_ITS | Patient Health Record ---
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 books as a coping mechanism for anxiety and self-harm urges - Monitor for improvement in anxiety symptoms and mood stability - continue therapy Major Depressive Disorder Assessment: Patient's PHQ-9 score of 18 indicates moderately severe depression. Patient denies current suicidal ideation but reports recent self-harm thoughts without action. Sleep and appetite are reported as normal. Patient has a suicide safety plan in place and has completed a mental health crisis plan. Plan: - Continue current antidepressant regimen - Maintain suicide safety plan - Follow up on effectiveness of mental health crisis plan - continue therapy Attention-Deficit/Hy peractivity Disorder (ADHD) Assessment: ADHD symptoms persist as evidenced by ADHD questionnaire results (03/08 in Part A, 08/14 in Part B) and attention test results showing below-average attention and 97th percentile inaccuracy of responses. Working memory and response inhibition were average. Patient has not tried guanfacine or clonidine previously. Plan: - discussed non-controlled treatment options such as Strattera and wellbutrin intuniv - patient has a history of restrictive eating best option intuniv - Monitor for improvement in ADHD symptoms and potential side effects - patient + for THC, advised discontinuation. Disordered Eating Assessment: Patient reports a history of disordered eating, describing it as anorexia type thing without formal diagnosis. This information is newly disclosed during this visit. Plan: - Monitor weight and eating habits - Strattera and Wellbutrin may not be the best option r/t disordered eating history The note is transcribed using speech recognition software. It is a reflection of a visit with the patient. It might have some inaccuracy, including medication names and transcribing errors, though efforts have been made to correct them. 04/17/2025 Other 1. Anxiety and Depression - Patient reports ongoing anxiety and depression symptoms. - Current medications: Lexapro 20 mg, Lamictal 100 mg, and BuSpar 10 mg twice daily. - Patient feels therapy is main factor in improvement. - Sleep is disrupted with frequent nighttime awakenings despite 8 hours of sleep. - Appetite has improved. - Patient denies current hallucinations, delusions, or suicidal ideation. - Plan: a. Increase Lamictal to 200 mg daily. b. Decrease Lexapro to 15 mg daily. c. Continue BuSpar 10 mg twice daily. d. Continue current therapy. e. Follow up in one month f. Provided crisis prevention hotline number (652). 2. Borderline Personality Disorder (BPD) - Patient has a history of BPD with big feelings. - Recent episode of intense emotions occurred 3 days ago, resolved quickly. - Patient is engaged in therapy addressing trauma history. - Plan: a. Continue Dialectical Behavior Therapy (DBT) and trauma therapy. b. Maintain Lamictal at increased dose for mood stabilization. c. Encourage completion of assigned therapeutic reading of 'i hate you dont leave me' 3. Fibromyalgia - Patient has a history of fibromyalgia. - Discussed potential connection between fibromyalgia, anxiety, and trauma. - Plan: a. Continue current anxiety management strategies to help reduce fibromyalgia flare-ups. 4. Medication Management - Current medications: Lexapro, Lamictal, and BuSpar. - Plan: a. Increase Lamictal to 200 mg daily. b. Decrease Lexapro to 15 mg daily. c. Continue BuSpar 10 mg twice daily. d. Informed patient about risk of Dawson-Williams syndrome 05/21/2025 Other 1. Generalized Anxiety Disorder - Patient rates anxiety as under control with current medication regimen. - MARIAM-7 score: 12 - Plan: a. Continue buspirone 10 mg BID. b. Continue lamotrigine 200 mg. c. Monitor for Dawson-Williams syndrome d. Continue therapy with [facility] 2. Depression - Patient rates depression as under control with current medication regimen. - PHQ-9 score: 7 - Reports situational depression related to financial stress - Plan: a. Decrease escitalopram to 10 mg daily. b. Start bupropion XR 150 mg every morning; advise taking in the morning due to potential insomnia, warn about possible increase in heart rate and irritability during the first two weeks, instruct to limit caffeine intake. c. Continue lamotrigine 200 mg. d. continue therapy with [facility]. 3. Borderline Personality Disorder - Patient reports experiencing big feelings attributed to BPD. - Currently in therapy with [facility] - Plan: a. Continue current medication regimen. b. Encourage ongoing therapy. c. discussed that the primary treatment for BPD is therapy. 4. Attention-Deficit /Hyperactivity Disorder - Patient reports difficulty concentrating and getting caught between multiple tasks. - Plan: a. Start bupropion XR 150 mg every morning for ADHD symptoms (see Depression plan for counseling on side effects). b. Monitor for improvement in concentration and task management. 5. Shadow Hallucinations - Patient reports experiencing shadow hallucinations occurring when going to sleep or waking up. - Recent episode a couple of weeks ago - Plan: a. Continue monitoring frequency and intensity of hallucinations. b. Encourage use of coping strategies. 6. Fleeting Suicidal Ideation - Reports fleeting suicidal thoughts related to situational stress. - No current active suicidal ideation or plan reported - Plan: a. Provided crisis prevention hotline number (988). b. Gave patient a magnet with hotline information. c. Monitor for worsening of suicidal thoughts. 06/20/2025 Other Discontinue Wellbutrin per patient due to increased anxiety Continue current medications, overall has stabilized -refills sent in Patient educated on all medications including potential benefits, side effects, risks. Educated on proper dosing schedule and importance of compliance. Cont therapy Previous records reviewed for continuity of care -Assessment and treatment plan reviewed with patient. -Compliance with treatment plan importance discussed. -Discussed the risks/benefits of this medication -Discussed medication side effects. -Contact office if symptoms worsen. -Discussed that it can take up to 6-8 weeks to see full therapeutic effects of psychotropic medications. -Crisis prevention hotline 988. 08/15/2025 Other Discontinue buspar, recently decreased dose to once daily without significant change in symptoms. -encouraged to contact office if increase in anxiety occurs Patient educated on all medications including potential benefits, side effects, risks. Educated on proper dosing schedule and importance of compliance. -Assessment and treatment plan reviewed with patient. -Compliance with treatment plan importance discussed. -Discussed the risks/benefits of this medication -Discussed medication side effects. -Contact office if symptoms worsen. -Discussed that it can take up to 6-8 weeks to see full therapeutic effects of psychotropic medications. -Crisis prevention hotline 988. Plan Of Treatment Pending Test Test Name Order Date ADHD Testing 03/06/2025 Next Appt Details Provider Name:Esther friedman, 10/24/2025 03:00:00 PM, [address], [address], [place], [address], Insurance Providers Payer Name Payer Address Payer Phone Subscriber Number Group Number Insured Name Patient Relationship to Insured Coverage Start Date Coverage End Date [place] [address] [place] [phone] [id number] Dang Armstrong Self - patient is the insured Medical (General) History Medical History History ICD Code Past Psychiatric History: Anxiety Disord er,Major Depressive Episode abdominal aortic aneurysm: No atrial fibrillation: No chronic fatigue syndrome: No essential tremor: No hyperlipidemia: No hypertension: No Parkinson's disease: No restless leg syndrome: No stroke: No subdural hematoma: No type 1 diabetes mellitus: No type 2 diabetes mellitus: No vitamin B12 deficiency: No vitamin D deficiency: No
--- OUTSIDE RECORDS SUMMARY | 2025-09-13 03:44 | XMS_ITS | Clinical Summary ---
Author Organization [facility] Address [address] [place] [address] Care Team Providers Care Scorer Helper Name Role Phone Inez Bui NP Primary Care Provider [phone] Maulik Beal NP Unavailable [phone] Allergies No known active allergies Medications naproxen (NAPROSYN) 250 mg tablet TAKE 1 TABLET(250 MG) BY MOUTH DAILY NEEDED FOR PAIN OR MENSTRUAL CRAMPING 20 tablet 2 4 Active lamoTRIgine (LaMICtal) 200 mg tablet Take 1 tablet (200 mg total) by mouth nightly 5 Active escitalopram (LEXAPRO) 10 mg tablet Take 1.5 tablets (15 mg total) by mouth daily 5 Active busPIRone (BUSPAR) 10 mg tablet Take 1 tablet (10 mg total) by mouth 2 (two) times a day 5 Active syringe, disposable, (Easy Irene Luer Lock Syringe) 1 mL syringeIndicati ons:Transgender male Use for testosterone injections 13 each 3 5 Active needle, disp, 18 G 18 gauge x 1 needleIndicatio ns:Transgender male Use to draw up testosterone 13 each 3 5 Active safety needles 27 gauge x 1/2 needleIndicatio ns:Transgender male Use for testosterone subcutaneous injections. 13 each 3 5 Active testosterone cypionate (DEPO-TESTOTERO NE) 200 mg/mL injection Patient may inject subcutaneously. Inject 0.3 ml (60 mg) under skin weekly. 4 mL 3 Active Active Problems Problem Noted Date Diagnosed Date Gender dysphoria 07/05/2025 Assessment & Plan (07/05/2025 10:56 AM CDT): -Chronic, not at goal -Referral sent to [facility] Eating disorder 07/05/2025 Assessment & Plan (07/05/2025 10:56 AM CDT): -Chronic, improving but not at goal -Referral sent to dietitian Impaired mobility 07/05/2025 Assessment & Plan (07/05/2025 10:56 AM CDT): -chronic, not at/near goal -Bilateral knee x-rays ordered today -Referral sent to physical therapy -May use OTC Tylenol/ibuprofen and muscle rub as needed for pain -Recommend use of heat and ice -If not improving, may need referral to ortho Orders: XR Knee Bilateral Ap Standing; Future Thoughts of self harm 02/20/2025 Assessment & Plan (02/20/2025 1:01 PM CDT): -not at/near goal -Patient admits to thoughts of self-harm on and off over the last year with recent ED visit at [facility]. Denies current thoughts of self-harm. -Continue on escitalopram 10 mg 1.5 tablets daily - will hold off on dosage changes at this time -Continue on buspirone 5 mg twice daily as needed for anxiety -Patient is scheduled to establish care with psychiatry on 04/23/2025 -Information provided to patient [facility]. Referral placed, but advised patient to call today to get into the program -Resources given to patient for suicide crisis hotline and Mental Health Emergency -Work note written -Will obtain records from [facility] concerning recent ED visit -Follow up in 1 week or sooner as needed Patient reiterated no suicidal thoughts at this time; take medication as directed; contact 911 and go to the ER if becomes suicidal; discussed side effects of medication with patient; encouraged healthy diet and exericise; encouraged patient to see a counselor Mood disorder 11/23/2024 Assessment & Plan (07/05/2025 10:56 AM CDT): -chronic, improving -Continue seeing Maulik Beal, psychiatry and Bree Vo, therapist -Continue on escitalopram 10 mg 1.5 tablets daily, Lamictal 200 mg daily, and buspirone 5 mg twice daily as prescribed by Psychiatry Patient reiterated no suicidal thoughts at this time; take medication as directed; contact 911 and go to the ER if becomes suicidal; discussed side effects of medication with patient; encouraged healthy diet and exericise; encouraged patient to see a counselor Assessment & Plan (02/27/2025 3:13 PM CDT): -chronic, not at/near goal -Continue seeing Maulik Beal, psychiatry and Bree Vo, therapist -Patient admits to thoughts of self-harm on and off over the last year with recent ED visit at [facility]. Denies current thoughts of self-harm. -Continue on escitalopram 20 mg daily, Lamictal 25 mg daily, and buspirone 5 mg twice daily as prescribed by Psychiatry -Recommend reaching out to IOP again to schedule an appointment -Follow up in 3 months or sooner as needed Patient reiterated no suicidal thoughts at this time; take medication as directed; contact 911 and go to the ER if becomes suicidal; discussed side effects of medication with patient; encouraged healthy diet and exericise; encouraged patient to see a counselor Assessment & Plan (02/20/2025 1:01 PM CDT): -chronic, not at/near goal -Patient admits to thoughts of self-harm on and off over the last year with recent ED visit at [facility]. Denies current thoughts of self-harm. -Continue on escitalopram 10 mg 1.5 tablets daily - will hold off on dosage changes at this time -Continue on buspirone 5 mg twice daily as needed for anxiety -Patient is scheduled to establish care with psychiatry on 04/23/2025 -Information provided to patient [facility]. Referral placed, but advised patient to call today to get into the program -Resources given to patient for suicide crisis hotline and Mental Health Emergency -Will obtain records from [facility] concerning recent ED visit -Work note written -Follow up in 1 week or sooner as needed Patient reiterated no suicidal thoughts at this time; take medication as directed; contact 911 and go to the ER if becomes suicidal; discussed side effects of medication with patient; encouraged healthy diet and exericise; encouraged patient to see a counselor Assessment & Plan (01/07/2025 11:21 AM CDT): [...] counselor Assessment & Plan (11/23/2024 11:24 AM ON LINE CSR): -chronic, not at/near goal -Discussed/ordered labs -Start [...] of both knees 11/23/2024 Assessment & Plan (07/05/2025 10:56 AM CDT): -chronic, not at/near goal -Bilateral knee x-rays ordered today -Referral sent to physical therapy -May use OTC Tylenol/ibuprofen and muscle rub as needed for pain -Recommend use of heat and ice -If not improving, may need referral to ortho Orders: XR Knee Bilateral Ap Standing; Future Assessment & Plan (01/07/2025 11:22 AM CDT): [...] referral Assessment & Plan (11/23/2024 11:25 AM ON LINE CSR): -chronic, not at/near goal -Patient reports completing [...] Encounters Date Type Department Care Team Description 07/26/2025 Telephone [facility] Endocrinology Metabolism and Lipid [address] [place] [address] [place] [address] Lilia Sena, RN PA 07/25/2025 Orders Only [facility] Endocrinology Metabolism and Lipid [address] [place] [address] [place] [address] Lilia Sena, RN Transgender male 07/24/2025 3:00 PM CDT Office Visit [facility] Medicine Endocrinology Metabolism and Lipid [address] [place] [address] [place] [address] Tomi Luu MD Transgender male (Primary Dx) 07/10/2025 Results Follow-Up [facility] at [place] [address] [place] [address] Inez Bui NP XR Knee Bilateral Ap Standing 07/09/2025 12:06 PM CDT - 07/09/2025 11:59 PM CDT Hospital Encounter [facility] [address] [place] [address] Chronic pain of both knees; Impaired mobility Discharge Disposition: Discharge to home or self care 07/05/2025 9:00 AM CDT Office Visit [facility] Primary Care at [address] [place] [id number] Inez Bui NP Mood disorder (Primary Dx); Chronic pain of both knees; Impaired mobility; Gender dysphoria; Eating disorder, unspecified type 07/05/2025 Telephone [facility] Primary Care at [address] [place] [phone] Inez Bui NP 07/05/2025 Orders Only [facility] Primary Care at [address] [place] [phone] Inez Bui NP Chronic pain of both knees (Primary Dx); Eating disorder, unspecified type from Last 3 Months Immunizations Immunization Administration Dates Next Due DTaP 04/25/2010,03/14/2006 DTaP / Hep B / IPV 04/27/2005,02/18/2005, 005 HPV9 05/06/2023,12/05/2020 Hep A, Ped Unspecified 09/20/2006,03/14/2006 Hep B, Adolescent or Pediatric 2004 HiB 02/18/2005,2004 IPV 04/25/2010,02/11/2006 Influenza, Quadrivalent, Spl it, Preservative Free, Intramuscular 10/12/2016 Influenza, Split 07/07/2009,07/31/2008 Influenza, Trivalent, Preser vative Free, Intramuscular 06/13/2025 Influenza, Unspecified 11/23/2024(Deferr ed: Patient Refused),07/03/2024(Deferred: Patient Refused),07/03/2024(Deferred: Patient Refused),07/03/2023(Deferred: Patient Refused) MMR 04/25/2010,10/25/2005 Meningococcal B, OMV (Bexsero) 05/06/2023 Meningococcal Conjugate (Menveo) 12/05/2020 Meningococcal MCV4P (Menactra) 10/12/2016 Pneumococcal Conjugate 7-Valent 04/27/2005,02/18,2004 Tdap 05/12/2016 Varicella 05/12/2016,10/25/2005 Surgical History Surgery Date Site/Laterality Comments TONSILLECTOMY 10/03/2009 Medical History Medical History Date Comments Mood disorder ADHD (attention deficit hyperactivity disorder) Family History Medical History Relation Name Comments Heart disease Maternal Grandfather Anxiety disorder Mother Depression Mother Relation Name Status Comments Maternal Grandfather Mother Social History Tobacco Use Types Packs/Day Years Used Date Smoking Tobacco: Never Smokeless Tobacco: Never Tobacco Cessation:Counseling Given: Not Answered AUDIT-C Answer Date Recorded Q1: How often do you have a drink containing alcohol? Never 02/27/2025 Q2: How many drinks containi ng alcohol do you have on a typical day when you are drinking? Patient does not drink Q3: How often do you have si x or more drinks on one occasion? Never 02/27/2025 PHQ-2 Answer Date Recorded PHQ-2 Total Score (If total score is 3 or more points, staff should administer the PHQ-9) 6 02/20/2025 PHQ-9 Answer Date Recorded PHQ-9 Total Score 12 11/23/2024 Comments Unknown Sex and Gender Information Value Date Recorded Sex Assigned at Not on file Legal Sex Female 8:40 AM CDT Gender Identity Female 10/01/2024 8:36 PM ON LINE CSR Sexual Orientation Don't know 10/01/2024 8: 36 PM ON LINE CSR Last Filed Vital Signs Vital Sign Reading Time Taken Comments Blood Pressure 117/80 07/24/2025 2:57 PM CDT Pulse 90 07/24/2025 2:57 PM CDT Temperature 36.4 C (97.6 F) 02/20/2025 9:53 AM CDT Respiratory Rate 16 07/05/2025 8:46 AM CDT Oxygen Saturation 98% 07/05/2025 8:46 AM CDT Inhaled Oxygen Concentration - - Weight 64.4 kg (142 lb) 07/24/2025 2:57 PM CDT Height 149.9 cm (4' 11) 07/24/2025 2:57 PM CDT Body Mass Index 28.68 07/24/2025 2:57 PM CDT Plan of Treatment Health Maintenance Due Date Last Done Comments HPV Vaccines (3 - 3-dose series) 07/29/2023 05/06/2023, 12/05/2020 Meningococcal B Vaccine (2 of 2 - Bexsero SCDM 2-dose series) 11/06/2023 05/06/2023 Regular Well Visit/Exam 18-64 11/23/2025 11/23/2024, 05/06/2023 Depression Screening 02/20/2026 02/20/2025, 01/07/2025, 11/23/2024, Additional history exists DTaP/Tdap/Td Vaccine (7 - Td or Tdap) 05/12/2026 05/12/2016, 04/25/2010, 03/14/2006, Additional history exists Hepatitis B Screening Completed 04/27/2005 , 02/18/2005, 2004, Additional history exists Pneumococcal vaccine <65 Aged Out 005, 02/18/2005, 2004 No longer eligible based on patient's age to complete this topic Varicella Vaccines Completed 05/12/2016, 10/25/2005 Meningococcal Vaccine Completed 12/05/2020, 017 Hepatitis C Screening Completed 11/23/2024 Covid-19 Vaccine Completed 06/13/2025, , 03/16/2021, Additional history exists Influenza Vaccine Completed 06/13/2025, , 07/07/2009, Additional history exists Procedures Procedure Name Priority Date/Time Associated Diagnosis Comments XR KNEE BILATERAL AP STANDING Schedule Routine, Read Routine (OP Routine) 07/09/2025 12:17 PM CDT Chronic pain of both knees Impaired mobility HEPATITIS PANEL, ACUTE Routine 11/23/2024 11:02 AM ON LINE CSR Annual physical exam Screening for thyroid disorder Screen for sexually transmitted diseases Encounter for hepatitis C screening test for low risk patient from Last 3 Months or Most Recently Relevant to Health Maintenance Results * XR Knee Bilateral Ap Standing (07/09/2025 12:17 PM CDT) Anatomical Region Laterality Modality Lower Extremities, Knee Bilateral Computed Radiography 07/09/2025 6:18 PM CDT Narrative 07/09/2025 6:19 PM CDT EXAM DESCRIPTION: 1. XR KNEE BILATERAL AP STANDING REASON FOR STUDY: Other (type), chronic bilateral knee pain and instability Bilateral knee pain x 2 years NKI No previous surgery FINDINGS: Upright view of both knees submitted without comparison. No acute fracture. Alignment is normal. The joint spaces are normal. IMPRESSION: 1. Normal single-view bilateral knee evaluation. THIS IS AN ELECTRONICALLY VERIFIED FINAL REPORT 07/09/2025 6:19 PM - Electronically signed by Hermann Lee M.D. MF: RUSSELL Report ID: [id number] Reading Location: [id number] Procedure Note Hermann Lee MD - 07/09/2025 EXAM DESCRIPTION: 1. XR KNEE BILATERAL AP STANDING REASON FOR STUDY: Other (type), chronic bilateral knee pain andinstability Bilateral knee pain x 2 years NKI No previous surgery FINDINGS: Upright view of both knees submitted without comparison. No acute fracture. Alignment is normal. The joint spaces are normal. IMPRESSION: 1. Normal single-view bilateral knee evaluation. THIS IS AN ELECTRONICALLY VERIFIED FINAL REPORT 07/09/2025 6:19 PM - Electronically signed by Hermann Lee M.D. MF: RUSSELL Report ID: [id number] Reading Location: [id number] Inez Bui NP IMG XR PROCEDURES Final Resu lt * Hepatitis panel, acute Blood (11/23/2024 11:02 AM ON LINE CSR) Hep A IgM Nonreactive Nonreactive Comment: Interpretive Data: If Hep A IgM Ab is reported as Equivocal, a new sample should be drawn in two weeks for testing. Current interpretive data was last revised on 19. Testing performed by: [address] [place]., [address] Hep B core IgM Nonreactive Nonreactive Rishabh DENG (DARCIE) Comment: Interpretive Data If HepB Core IgM Ab is reported as Equivocal, a new sample should be drawn in two weeks for testing. Current interpretive data was last revised on 19. Testing performed by: [address] [address] Hep C Ab Nonreactive Nonreactive KIMO DENG [...] last revised on 2019. Testing performed by: [facility], [address] [place] [address]., [address] HepBsAg Nonreactive Nonreactive KIMO DENG (DARCIE) Comment:Testing performed by : [address] [address] Blood 11/23/2024 11:0 2 AM ON LINE CSR 11/23/2024 4:37 PM ON LINE CSR Inez Bui LAB MICROBIOLOGY - GENERAL O RDERABLES Final Result KIMO ISH (DARCIE) [address] Department [place] [address] from Last 3 Months or Most Recently Relevant to Health Maintenance Insurance [facility] [place] PPO HEALTHCARE PPO HEALTHCARE PPO [facility] PPO Care Teams Scorer Helper Relationship Specialty Start Date End Date Inez Bui NP [address] [place] [address] PCP - General Family Medicine 05/06/23 Maulik Bela NP [phone] [id number] Nurse Practitioner Psychiatry 02/27/25"
[2025-09-13 04:21] VITALS: BP 121/88; PULSE 98; RESP 16; TEMP 36.9; O2SAT 98
--- NOTE | 2025-09-13 05:31 | ED_ITS ---
HPI - Extremity Problem General Chief complaint: Extremity Problem,Nontraumatic Stated complaint: R shoulder pain radiating to hand Time Seen by Provider: 09/13/25 05:28 Source: patient and family Mode of arrival: ambulatory Limitations: no limitations History of Present Illness HPI Narrative: This is a 19-year-old female with history of depression anxiety who presents to the ED for right shoulder/arm pain. Patient states that she was walking around about 5 hours ago when she felt sudden onset right arm/shoulder pain. Denies any known trauma. She states it hurts in her shoulder down to her elbow with of her elbow. She has never had this issue before. No known trauma that she is aware of. Related Data Home Medications ?Medication ?Instructions ?Recorded ?Confirmed ?Last Taken ?Type No Home Medications 09/12/24 09/12/24 U nknown History Allergies Allergy/AdvReac Type Severity Reaction Status Date / Time MYCINS Allergy Severe ANAPHYLAXIS Uncoded 09/12/24 16:38 Review of Systems Review of Systems: All systems reviewed & are unremarkable except as noted in HPI and below PMFSH Social History Social History Substance use type: does not use Exam Narrative: APPEARANCE: No acute distress, nontoxic, resting in bed HEENT: Normocephalic, atraumatic, OMM RESPIRATORY: No respiratory distress CARDIOVASCULAR: Appears well perfused ABDOMINAL: Nondistended MUSCULOSKELETAl: Tenderness over the midshaft right humerus, pain with ROM of the right shoulder. Neurovascularly intact distally. NEURO: Awake and alert. SKIN:: Warm, dry. No rashes lesions or abrasions PSYCHIATRIC: Normal affect/mood, Course Vital Signs Vital signs: Vital Signs Temperature 98.4 F 09/13/25 04:21 Pulse Rate 98 09/13/25 04:21 Respiratory Rate 16 09/13/25 04:21 Blood Pressure 121/88 09/13/25 04:21 Pulse Oximetry 98 09/13/25 04:21 Oxygen Delivery Room Air 09/13/25 04:21 Temperature 98.0 F 09/13/25 07:07 Pulse Rate 68 09/13/25 07:07 Respiratory Rate 18 09/13/25 07:07 Blood Pressure 126/62 09/13/25 07:07 Pulse Oximetry 100 09/13/25 07:07 Oxygen Delivery Room Air 09/13/25 04:21 MDM MDM Narrative Medical decision making narrative: 19-year-old female Presenting for right arm pain. On initial evaluation patient was in no acute distress afebrile, hemodynamic stable. Differentials include but are not limited to: Fracture, sprain, strain, contusion Notable exam findings: Tenderness over the midshaft right humerus, slight temperature discrepancy between the upper extremities, right upper extremity is slightly cooler but pulses are intact and there is good cap refill I personally reviewed the patient's images and interpret as follows: Right shoulder x-ray, right humerus x-ray, right elbow x-ray also showed no acute process. Patient was given Toradol. Suspect that she has some myalgia a potentially muscle strain causing her symptoms. She was educated on Tylenol and ibuprofen use. She was advised follow-up with her PCP in the next week for re-evaluation. She was offered a sling for comfort. Patient was agreeable to this plan. Given strict return precautions. Differential Diagnosis Differential Diagnosis: Fracture, sprain, strain, contusion Discharge Plan Discharge Clinical Impression: Myalgia Patient Disposition: Home Condition: Stable Instructions: Antibiotic Form, Arm Pain (ED) Additional Instructions: Follow-up with your PCP in the next week for re-evaluation. Return to the ED for any new or worsening symptoms. For pain, discomfort or temperature greater than or equal to 100.8 ?F please alternate the following 2 medications as needed. First medication- acetaminophen/Tylenol- 1000mg every 6-8 hours as needed for above indications. Second medication- ibuprofen/Motrin-600mg every 6-8 hours as needed for above indication. Patient Language: New Zealander Prescriptions: No Action No Home Medications Follow-up/Referrals: PHYSICIAN NOT ON STAFF,NONSTAFF [Primary Care Provider]
[2025-09-13] MEDS: KETOROLAC 10 MG TABLET PO (06:55)
[2025-09-13 07:07] VITALS: BP 126/62; PULSE 68; RESP 18; TEMP 36.7; O2SAT 100
== END 2025-09-13 07:09 | disposition home or self-care (01) ==
PROVIDERS: Emergency Provider Student in an Organized Health Care Education/Training Program
DX: M79.18 Myalgia, other site (principal)
CPT/HCPCS: 73030; 73060; 73070; 99284; A9270